=== PATIENT | female | born 1975 | race African-American/Black ===

== ENCOUNTER 2016-08-07 17:48 | Emergency (ER) | payer OTHER ==
[~2016-08-07] VITALS: Ht 162.6 cm; Wt 95.3 kg
[~2016-08-07 17:48] MED LIST: ACYC200C PO; ALBU2.5V5 NEB; ASPI325T4 PO; ATOV750O PO; AZAT50TA PO; AZIT250T PO; BUPR100T6 PO; CETI10TA22 PO; CIPR250T PO; CYAN100072 PO; CYCL5TAB PO; DEXT30SU15 PO; DILT240C4 PO; DILT30TA26 PO; DIPH25TA64 PO; ENOX30DI SQ; ENOX80DI3 SQ; FAMO-63 PO; FENT1PAT19 TD; FENT1PAT21 TP; FENT1PAT91 TD; FLUT1DIS3 IH; FLUT1DIS3 INH; FURO-69 PO; GABA-586 PO; GUAI100G2 PO; HYDR200T PO; HYDR25TA PO; HYDR30CR61 RC; HYDR4TAB13 PO; INSU100C4 SQ; LACT1CAP19 PO; LOPE1TAB4 PO; LORA0.5T96 PO; LORA1TAB PO; METO10TA81 PO; METR250T PO; MONT10TA6 PO; MORP15TA34 PO; NORT10CA3 PO; NPH,100V SQ; NYST30PO9 TP; OXCA150T3 PO; POLY119P19 PO; POSA100T PO; POTA20TA84 PO; PRED-220 PO; PRED50TA PO; PRED5TAB PO; PROM12.56 PO; PROM25TA10 PO; RIFA150C PO; RIVA10TA PO; SENN8.6T99 PO; TOPI25TA32 PO; VENTOLIN HFA18 GM IH; ZOLP10TA PO; [UNRECOGNIZED DRUG - CODE] IH; [UNRECOGNIZED DRUG - CODE] PO
[2016-08-07] MEDS ORDERED: IV NORMAL SALINE 1000ML BAG 1,000 ML IV SCH (18:38)
[2016-08-07] MEDS ORDERED: ONDANSETRON PF 4 MG/2 ML VIAL. IV ONE (18:45)
--- NOTE | 2016-08-07 18:47 | PHYS DOC ---
Past Medical History Past Medical History: Anxiety, Asthma, Depression, Diabetes-Type II, Fibromyalgia, Hypertension, MRSA, Ovarian Cyst, Seizure Additional Past Medical Histor: NEUROPATHY, VAS. 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 The patient's primary complaint currently is chest pain. Patient states that the pain goes across her entire chest. Patient had stated before that she had pain radiating to her back per the nursing note, however the patient is telling me that the pain is "all over." Patient has history of sarcoidosis, asthma, fibromyalgia and diabetes mellitus. The patient has had multiple visits to the emergency department for pain-related complaints in the past. Patient also states that she is having shortness of breath currently. Patient has history of pulmonary embolism and is currently on Xarelto therapy. Patient rates her pain currently is 10 out of 10. Patient has also had nausea and vomiting and states that she has not been able to keep any of her medications down. Patient denies fevers. Patient has had small amounts of blood in her vomit. Review of Systems Review of Systems Constitutional: Denies fever or chills [] Eyes: Denies change in visual acuity, redness, or eye pain [] HENT: Denies nasal congestion or sore throat [] Respiratory: Cough, shortness of breath [] Cardiovascular: Chest pain [] GI: Abdominal pain, nausea, vomiting, hematemesis, denies bloody stools or diarrhea [] : Denies dysuria or hematuria [] Musculoskeletal: Denies back pain or joint pain [] Integument: Denies rash or skin lesions [] Neurologic: Headache, denies focal weakness or sensory changes [] Endocrine: Denies polyuria or polydipsia [] Current Medications Current Medications Current Medications Medications (Trade) Dose Ordered Sig/Jerilyn Start Time Stop Time Status Last Admin Dose Admin Hydromorphone HCl 1 mg 1 mg PRN Q15MIN PRN 08/07/16 18:45 08/08/16 18:44 08/07/16 20:02 1 MG Ondansetron HCl (Zofran) 4 mg 1X ONCE 08/07/16 18:45 08/07/16 18:48 DC Promethazine HCl (Phenergan Im) 25 mg 1X ONCE 08/07/16 21:00 08/07/16 21:01 DC Sodium Chloride (Iv Sodium Chloride 0.9% 1000ml Bag) 1,000 ml @ 1,000 mls/hr Q1H 08/07/16 18:38 08/07/16 19:37 DC 08/07/16 20:01 1,000 MLS/HR Sodium Chloride (NORMAL SALINE FLUSH for STERILE FIELD) 10 ml STK-MED ONCE 08/07/16 19:26 08/07/16 19:27 DC Allergies Allergies Allergies Coded Allergies Type Severity Reaction Last Updated Verified Penicillins Allergy Intermediate 01/25/14 Yes bupropion Allergy Intermediate 01/25/14 Yes ketamine Allergy Intermediate "i flipped out" 07/13/16 Yes ketorolac Allergy Intermediate 01/25/14 Yes ondansetron Allergy Intermediate ITCHING ALL OVER 05/14/15 Yes prochlorperazine Allergy Intermediate 07/31/14 Yes sulfamethoxazole Allergy Intermediate 01/18/14 Yes tiotropium Allergy Intermediate DUONEB OK 06/21/14 Yes tramadol Allergy Intermediate TOLERATES HYDROMORPHONE 06/16/14 Yes trimethoprim Allergy Intermediate 01/18/14 Yes Physical Exam Physical Exam Constitutional: Alert, afebrile, no acute distress, appears in mild discomfort. [] HENT: Normocephalic, atraumatic, bilateral external ears normal, oropharynx moist, no oral exudates, nose normal. [] Eyes: PERRLA, EOMI, conjunctiva normal, no discharge. [] Neck: Normal range of motion, no tenderness, supple, no stridor. [] Cardiovascular: Tachycardia, regular rhythm, no murmur [] Lungs & Thorax: Bilateral breath sounds clear to auscultation [] Abdomen: Bowel sounds normal, soft, no tenderness, no masses, no pulsatile masses. [] Skin: Warm, dry, no erythema, no rash. [] Back: No tenderness, no CVA tenderness. [] Extremities: No tenderness, no cyanosis, no clubbing, ROM intact, no edema. [] Neurologic: Alert and oriented X 3, normal motor function, normal sensory function, no focal deficits noted. [] Current Patient Data Vital Signs Vital Signs Date Time Temp Pulse Resp B/P Pulse Ox O2 Delivery O2 Flow Rate FiO2 08/07/16 20:02 23 100 08/07/16 17:51 98.9 115 127/75 Room Air 98.9 Lab Values Laboratory Tests Test 08/07/16 19:50 White Blood Count 7.8x10^3/uL (4.0-11.0) Red Blood Count 4.75x10^6/uL (3.50-5.40) Hemoglobin 12.1g/dL (12.0-15.5) Hematocrit 39.2% (36.0-47.0) Mean Corpuscular Volume 82fL (79-100) Mean Corpuscular Hemoglobin 25pg (25-35) Mean Corpuscular Hemoglobin Concent 31g/dL (31-37) Red Cell Distribution Width 21.5% (11.5-14.5) H Platelet Count 190x10^3/uL (140-400) Neutrophils (%) (Auto) 76% (31-73) H Lymphocytes (%) (Auto) 11% (24-48) L Monocytes (%) (Auto) 12% (0-9) H Eosinophils (%) (Auto) 0% (0-3) Basophils (%) (Auto) 1% (0-3) Neutrophils # (Auto) 5.9x10^3uL (1.8-7.7) Lymphocytes # (Auto) 0.8x10^3/uL (1.0-4.8) L Monocytes # (Auto) 0.9x10^3/uL (0.0-1.1) Eosinophils # (Auto) 0.0x10^3/uL (0.0-0.7) Basophils # (Auto) 0.1x10^3/uL (0.0-0.2) Platelet Estimate Adequate (ADEQUATE) Polychromasia Slight Anisocytosis Mod D-Dimer (Khadijah) < 0.27ug/mlFEU (0.00-0.50) Sodium Level 139mmol/L (136-145) Potassium Level 3.6mmol/L (3.5-5.1) Chloride Level 104mmol/L (98-107) Carbon Dioxide Level 24mmol/L (21-32) Anion Gap 11 (6-14) Blood Urea Nitrogen 7mg/dL (7-20) Creatinine 1.0mg/dL (0.6-1.0) Estimated GFR (Cockcroft-Gault) 73.9 Glucose Level 257mg/dL (70-99) H Calcium Level 9.1mg/dL (8.5-10.1) Magnesium Level 2.1mg/dL (1.8-2.4) Total Bilirubin 0.2mg/dL (0.2-1.0) Direct Bilirubin 0.1mg/dL (0.0-0.2) Aspartate Amino Transferase (AST) 12U/L (15-37) L Alanine Aminotransferase (ALT) 14U/L (14-59) Alkaline Phosphatase 118U/L (46-116) H Creatine Kinase 51U/L (26-192) Creatine Kinase MB (Mass) < 0.5ng/mL (0.0-3.6) Creatine Kinase MB Relative Index 1.0% (0-4) Troponin I Quantitative < 0.017ng/mL (0.000-0.055) EC-Tzl-D-Type Natriuretic Peptide 27pg/mL (0-124) Total Protein 7.2g/dL (6.4-8.2) Albumin 3.4g/dL (3.4-5.0) Laboratory Tests 08/07/16 19:50 Laboratory Tests 08/07/16 19:50 EKG EKG Interpreted by me: Heart rate 114, sinus tachycardia, normal intervals, normal axis, no acute ST/T-wave abnormalities present [] Radiology/Procedures Radiology/Procedures One view AP chest x-ray interpreted by me: No new infiltrates or effusions, normal cardiac silhouette, chronic fibrotic changes present [] Course & Med Decision Making Course & Med Decision Making Pertinent Labs and Imaging studies reviewed. (See chart for details) Patient was given IM Phenergan, IV fluids, and IV Dilaudid. Patient's blood work does not show any evidence of cardiac ischemia or pulmonary embolism. The patient's pain and nausea were controlled in the emergency department. The patient will be discharged with a prescription for Phenergan for continued control nausea and patient was advised to continue her home medications for pain. Advised follow-up in one to 2 days a primary doctor and return to emergency department for any worsening symptoms. Patient voiced understanding and in agreement with treatment plan. Dragon Disclaimer Dragon Disclaimer This electronic medical record was generated, in whole or in part, using a voice recognition dictation system. Departure Departure Impression: Primary Impression: Chest pain Additional Impressions: Uncontrolled diabetes mellitus Nausea & vomiting Disposition: 01 HOME, SELF-CARE Condition: IMPROVED Referrals: ENDY ARGUETA (PCP) Patient Instructions: Chest Pain (Nonspecific) Additional Instructions: Follow-up with your primary doctor in 1-2 days. Continue with a clear liquid diet until your nausea and vomiting have improved. Return to the emergency department for any worsening symptoms. Scripts Promethazine Hcl 25 Mg Supp.rect25 Mg RC Q6H PRN NAUSEA/VOMITING #10 SUPP.RECT Prov:TRUDY ALLRED MD 08/07/16 Problem Qualifiers Primary Impression: Chest pain Chest pain type: other chest pain Qualified Code: R07.89 - Other chest pain Additional Impressions: Uncontrolled diabetes mellitus Diabetes mellitus type: type 2 Diabetes mellitus complication status: with hyperglycemia Diabetes mellitus terminal gauger insulin use: unspecified penitentiary insulin use status Qualified Code: E11.65 - Type 2 diabetes mellitus with hyperglycemia Nausea & vomiting Vomiting type: unspecified Vomiting Intractability: unspecified Qualified Code: R11.2 - Nausea with vomiting, unspecified TRUDY ALLRED MD Aug 07, 2016 18:47
[2016-08-07] MEDS ORDERED: 0.9 % SOD CHL for STERILE FIELD 10 ML DISP.SYRIN. ONE (19:26)
[2016-08-07] MEDS: HYDROMORPHONE 2 MG/ML VIAL. IV/SQ PRN ×2 (20:02→21:25)
[2016-08-07 20:22] LABS: BASO # 0.1 x10^3/uL (0.0-0.2); BASO % 1 % (0-3); EOS % 0 % (0-3); HEMATOCRIT 39.2 % (36.0-47.0); HEMOGLOBIN 12.1 g/dL (12.0-15.5); LYMPH # 0.8 x10^3/uL (1.0-4.8); LYMPH % 11 % (24-48); MEAN CORPUSCULAR HEMOGLOBIN 25 pg (25-35); MEAN CORPUSCULAR HGB CONC 31 g/dL (31-37); MEAN CORPUSCULAR VOLUME 82 fL (79-100); MONO % 12 % (0-9); NEUT % 76 % (31-73); PLATELET COUNT 190 x10^3/uL (140-400); RED BLOOD COUNT 4.75 x10^6/uL (3.50-5.40); RED CELL DISTRIBUTION WIDTH 21.5 % (11.5-14.5); WHITE BLOOD COUNT 7.8 x10^3/uL (4.0-11.0)
[2016-08-07 20:39] LABS: ANISOCYTOSIS MOD; PLT ESTIMATE ADEQUATE (ADEQUATE)
[2016-08-07 20:40] LABS: CALCIUM 9.1 mg/dL (8.5-10.1); GFR 73.9; POLYCHROMASIA SLIGHT; POTASSIUM 3.6 mmol/L (3.5-5.1)
[2016-08-07] MEDS ORDERED: PROMETHAZINE IM 25 MG/ML VIAL IM ONE (21:00)
[2016-08-07 21:03] LABS: ALBUMIN 3.4 g/dL (3.4-5.0); DIRECT BILIRUBIN 0.1 mg/dL (0.0-0.2); MAGNESIUM 2.1 mg/dL (1.8-2.4); TOTAL BILIRUBIN 0.2 mg/dL (0.2-1.0); TOTAL PROTEIN 7.2 g/dL (6.4-8.2)
[2016-08-07 21:04] LABS: CREATINE KINASE 51 U/L (26-192)
[2016-08-07 21:05] LABS: CKMB MASS < 0.5 ng/mL (0.0-3.6)
[2016-08-07] MEDS ORDERED: PROM25SU33 RC (21:35)
[2016-08-07 22:07] VITALS: BP 129/78
[2016-08-07] MEDS ORDERED: HEPARIN PF 500 UNIT/5 ML DISP.SYRIN. IV ONE ×2 (22:11→22:30)
--- NOTE | 2016-08-08 06:42 | EKG ---
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
--- NOTE | 2016-08-08 08:56 | RAD ---
Portable chest, 08/07/2016: History: Chest pain, diabetes, sarcoidosis Comparison is made to a study from 07/30/2016. A left Port-A-Cath extends into the superior aspect of the right atrium. The heart size and pulmonary vascularity are normal. There are small scattered parenchymal opacities which are unchanged. These probably represent scars related to the given history of sarcoidosis. There are surgical sutures in the right lung. No new parenchymal abnormality is seen. There is no evidence of pleural fluid. IMPRESSION: No acute abnormality is detected with no significant change since 07/30/2016.
== END 2016-08-07 22:20 | disposition home or self-care (01) ==
LOC: ER 17:48
DX: R07.89 Other chest pain (principal); E11.65 Type 2 diabetes mellitus with hyperglycemia; K92.0 Hematemesis; R00.0 Tachycardia, unspecified; J45.909 Unspecified asthma, uncomplicated; M79.7 Fibromyalgia; D86.9 Sarcoidosis, unspecified; F41.9 Anxiety disorder, unspecified; F32.9 Major depressive disorder, single episode, unspecified; I10 Essential (primary) hypertension; E11.40 Type 2 diabetes mellitus with diabetic neuropathy, unspecified; Z86.14 Personal history of Methicillin resistant Staphylococcus aureus infection; Z88.5 Allergy status to narcotic agent; Z88.8 Allergy status to other drugs, medicaments and biological substances; Z88.1 Allergy status to other antibiotic agents; Z88.2 Allergy status to sulfonamides; Z88.0 Allergy status to penicillin; Z86.711 Personal history of pulmonary embolism; Z86.718 Personal history of other venous thrombosis and embolism
CPT/HCPCS: 36415; 71010; 80048; 80076; 82553; 83735; 83880; 84484; 85007; 85027; 85379; 93005; 96361; 96372; 96374; 96376; 99285; J1170; J2550; J7030

== ENCOUNTER 2016-08-09 21:07 | Emergency (ER) | payer OTHER ==
[~2016-08-09] VITALS: Ht 162.6 cm; Wt 95.3 kg
[~2016-08-09 21:07] MED LIST changes: +PROM25SU33 RC
[2016-08-09] MEDS ORDERED: IPRATRPIUM/ALBUTEROL 0.5/2.5MG 3 ML NEBU. NEB ONE (21:30)
[2016-08-09] MEDS ORDERED: 0.9 % SOD CHL for STERILE FIELD 10 ML DISP.SYRIN. ONE (21:40)
[2016-08-09] MEDS ORDERED: METOCLOPRAMIDE HCL 10 MG/2 ML VIAL. IV ONE (22:00)
[2016-08-09] MEDS ORDERED: IV NORMAL SALINE 1000ML BAG 1,000 ML IV SCH (22:00)
[2016-08-09] MEDS ORDERED: FENTANYL PF 100 MCG/2 ML VIAL. IV ONE (22:00)
[2016-08-09 22:07] LABS: BASO % 1 % (0-3); EOS % 1 % (0-3); HEMATOCRIT 40.7 % (36.0-47.0); HEMOGLOBIN 12.5 g/dL (12.0-15.5); LYMPH # 1.9 x10^3/uL (1.0-4.8); LYMPH % 22 % (24-48); MEAN CORPUSCULAR HEMOGLOBIN 25 pg (25-35); MEAN CORPUSCULAR HGB CONC 31 g/dL (31-37); MEAN CORPUSCULAR VOLUME 82 fL (79-100); MONO % 11 % (0-9); NEUT % 66 % (31-73); PLATELET COUNT 210 x10^3/uL (140-400); RED BLOOD COUNT 4.94 x10^6/uL (3.50-5.40); RED CELL DISTRIBUTION WIDTH 21.1 % (11.5-14.5); WHITE BLOOD COUNT 8.7 x10^3/uL (4.0-11.0)
[2016-08-09 22:17] LABS: CALCIUM 9.4 mg/dL (8.5-10.1); CREATININE 1.1 mg/dL (0.6-1.0); GFR 66.2; POTASSIUM 3.5 mmol/L (3.5-5.1)
[2016-08-09 22:23] LABS: ALBUMIN 3.7 g/dL (3.4-5.0); DIRECT BILIRUBIN 0.1 mg/dL (0.0-0.2); TOTAL BILIRUBIN 0.2 mg/dL (0.2-1.0); TOTAL PROTEIN 7.6 g/dL (6.4-8.2)
[2016-08-09] MEDS ORDERED: PROM12.553 RC (22:57)
[2016-08-09 22:59] LABS: ANISOCYTOSIS MOD; PLT ESTIMATE ADEQUATE (ADEQUATE); POLYCHROMASIA SLIGHT; TEAR DROP CELLS OCC
[2016-08-09] MEDS ORDERED: PROMETHAZINE 12.5 MG in IV NORMAL SALINE 50ML 50 ML IV ONE (23:00)
--- NOTE | 2016-08-09 23:00 | PHYS DOC ---
Past Medical History Past Medical History: Anxiety, Asthma, Depression, Diabetes-Type II, Fibromyalgia, Hypertension, MRSA, Ovarian Cyst, Seizure Additional Past Medical Histor: NEUROPATHY, VAS. 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 Symptoms initially started with nausea and vomiting and she was seen here on 08/07. She notes she has chronic dyspnea as well that has continued since that time. She has since developed bilateral nose bleed that is mild, and sometimes runs down the back of her throat in which she has swallowed blood. This worsens her nausea and she has vomited some blood since that time. On clarification, she mostly states she has bloody sputum with clearing of her throat. She denies dark stools, abdominal pain, chest pain. She states she has full body discomfort and is not able to take her home pain medicines. She denies cough, chest pain, hemoptysis, injury, rash, fever or chills, diarrhea, dysuria, numbness, tingling, weakness, headache, vision changes. Review of Systems Review of Systems Constitutional: Denies fever or chills [] Eyes: Denies change in visual acuity, redness, or eye pain [] HENT: Denies nasal congestion or sore throat [] Respiratory: Denies cough [] Cardiovascular: No additional information not addressed in HPI [] GI: Denies abdominal pain, bloody stools or diarrhea [] : Denies dysuria or hematuria [] Musculoskeletal: Denies back pain or joint pain [] Integument: Denies rash or skin lesions [] Neurologic: Denies headache, focal weakness or sensory changes [] Endocrine: Denies polyuria or polydipsia [] Current Medications Current Medications Current Medications Medications (Trade) Dose Ordered Sig/Jerilyn Start Time Stop Time Status Last Admin Dose Admin Albuterol/ Ipratropium (Duoneb) 3 ml 1X ONCE 08/09/16 21:30 08/09/16 21:32 DC 08/09/16 21:35 3 ML Fentanyl Citrate (Fentanyl 2ml Vial) 75 mcg 1X ONCE 08/09/16 22:00 08/09/16 22:01 DC 08/09/16 22:13 75 MCG Metoclopramide HCl 10 mg 10 mg 1X ONCE 08/09/16 22:00 08/09/16 22:17 DC Promethazine HCl/ Sodium Chloride (Phenergan/Iv Sodium Chloride 0.9% 50ml) 50.5 ml @ 101 mls/hr 1X ONCE 08/09/16 23:00 08/09/16 23:29 DC 08/09/16 22:26 101 MLS/HR Sodium Chloride (Iv Sodium Chloride 0.9% 1000ml Bag) 1,000 ml @ 1,000 mls/hr Q1H 08/09/16 22:00 08/09/16 22:59 DC 08/09/16 22:13 1,000 MLS/HR Sodium Chloride 10 ml 10 ml STK-MED ONCE 08/09/16 21:40 08/09/16 21:41 DC Allergies Allergies Allergies Coded Allergies Type Severity Reaction Last Updated Verified Penicillins Allergy Intermediate 01/25/14 Yes bupropion Allergy Intermediate 01/25/14 Yes ketamine Allergy Intermediate "i flipped out" 07/13/16 Yes ketorolac Allergy Intermediate 01/25/14 Yes ondansetron Allergy Intermediate ITCHING ALL OVER 05/14/15 Yes prochlorperazine Allergy Intermediate 07/31/14 Yes sulfamethoxazole Allergy Intermediate 01/18/14 Yes tiotropium Allergy Intermediate DUONEB OK 06/21/14 Yes tramadol Allergy Intermediate TOLERATES HYDROMORPHONE 06/16/14 Yes trimethoprim Allergy Intermediate 01/18/14 Yes Physical Exam Physical Exam Constitutional: Well developed, well nourished, no acute distress, non-toxic appearance. [] HENT: Normocephalic, atraumatic, bilateral external ears normal, oropharynx moist, no oral exudates. Bilateral anterior epistaxis with minimal oozing. [] Eyes: PERRLA, EOMI. [] Neck: Normal range of motion, supple, no stridor. [] Cardiovascular: Regular tachycardia [] Lungs & Thorax: Mild bilateral wheezing, normal respiratory effort, no crackles [] Abdomen: Bowel sounds normal, soft, no tenderness. [] Skin: Warm, dry, no erythema, no rash. [] Back: No tenderness, no CVA tenderness. [] Extremities: ROM intact, no edema, no palpable cord. [] Neurologic: Alert and oriented X 3, normal motor function, normal sensory function, no focal deficits noted. [] Psychologic: Affect normal, judgement normal, mood normal. [] Current Patient Data Vital Signs Vital Signs Date Time Temp Pulse Resp B/P Pulse Ox O2 Delivery O2 Flow Rate FiO2 08/09/16 23:11 101 150/81 97 Room Air 08/09/16 22:13 18 08/09/16 21:14 98.4 98.4 Lab Values Laboratory Tests Test 08/09/16 21:58 White Blood Count 8.7x10^3/uL (4.0-11.0) Red Blood Count 4.94x10^6/uL (3.50-5.40) Hemoglobin 12.5g/dL (12.0-15.5) Hematocrit 40.7% (36.0-47.0) Mean Corpuscular Volume 82fL (79-100) Mean Corpuscular Hemoglobin 25pg (25-35) Mean Corpuscular Hemoglobin Concent 31g/dL (31-37) Red Cell Distribution Width 21.1% (11.5-14.5) H Platelet Count 210x10^3/uL (140-400) Neutrophils (%) (Auto) 66% (31-73) Lymphocytes (%) (Auto) 22% (24-48) L Monocytes (%) (Auto) 11% (0-9) H Eosinophils (%) (Auto) 1% (0-3) Basophils (%) (Auto) 1% (0-3) Neutrophils # (Auto) 5.7x10^3uL (1.8-7.7) Lymphocytes # (Auto) 1.9x10^3/uL (1.0-4.8) Monocytes # (Auto) 1.0x10^3/uL (0.0-1.1) Eosinophils # (Auto) 0.0x10^3/uL (0.0-0.7) Basophils # (Auto) 0.0x10^3/uL (0.0-0.2) Platelet Estimate Adequate (ADEQUATE) Polychromasia Slight Anisocytosis Mod Tear Drop Cells Occ Sodium Level 139mmol/L (136-145) Potassium Level 3.5mmol/L (3.5-5.1) Chloride Level 105mmol/L (98-107) Carbon Dioxide Level 26mmol/L (21-32) Anion Gap 8 (6-14) Blood Urea Nitrogen 8mg/dL (7-20) Creatinine 1.1mg/dL (0.6-1.0) H Estimated GFR (Cockcroft-Gault) 66.2 Glucose Level 205mg/dL (70-99) H Calcium Level 9.4mg/dL (8.5-10.1) Total Bilirubin 0.2mg/dL (0.2-1.0) Direct Bilirubin 0.1mg/dL (0.0-0.2) Aspartate Amino Transferase (AST) 15U/L (15-37) Alanine Aminotransferase (ALT) 21U/L (14-59) Alkaline Phosphatase 125U/L (46-116) H Total Protein 7.6g/dL (6.4-8.2) Albumin 3.7g/dL (3.4-5.0) Lipase 311U/L (73-393) Laboratory Tests 08/09/16 21:58 Laboratory Tests 08/09/16 21:58 EKG EKG EKG as interpreted by me as sinus tachycardia, rate 121, no ST-T changes, normal intervals, no ectopy Course & Med Decision Making Course & Med Decision Making Pertinent Labs and Imaging studies reviewed. (See chart for details) Lungs are clear to auscultation after neb. She has no emesis while here and is tolerating po. Epistaxis is controlled after direct pressure. Lab evaluation is unremarkable. Will provide Phenergan suppository as she states she vomiting the Phenergan pills. Return precautions given. She understands and agrees. Dragon Disclaimer Sol Disclaimer This electronic medical record was generated, in whole or in part, using a voice recognition dictation system. Departure Departure Impression: Primary Impression: Nausea & vomiting Additional Impression: Anterior epistaxis Disposition: 01 HOME, SELF-CARE Condition: STABLE Patient Instructions: Nosebleed, [id number] Additional Instructions: Take promethazine as needed for nausea. Drink liquids to stay hydrated. Follow- up with your primary care doctor. Return for any concerns. Scripts Promethazine HCl (Phenergan)12.5 Mg Supp.rect12.5 Mg RC PRN Q6-8HRS PRN NAUSEA # 10 SUPP.RECT Prov:Maren WOLFE MD 08/09/16 Problem Qualifiers Primary Impression: Nausea & vomiting Vomiting type: unspecified Vomiting Intractability: non-intractable Qualified Code: R11.2 - Nausea with vomiting, unspecified Maren WOLFE MD Aug 09, 2016 23:00
[2016-08-09 23:11] VITALS: BP 150/81
--- NOTE | 2016-08-10 06:29 | EKG ---
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
== END 2016-08-09 23:18 | disposition home or self-care (01) ==
LOC: ER 21:07
DX: R04.0 Epistaxis (principal); R11.2 Nausea with vomiting, unspecified; J45.909 Unspecified asthma, uncomplicated; E11.40 Type 2 diabetes mellitus with diabetic neuropathy, unspecified; I10 Essential (primary) hypertension; Z86.718 Personal history of other venous thrombosis and embolism; Z86.711 Personal history of pulmonary embolism; M79.7 Fibromyalgia; Z86.14 Personal history of Methicillin resistant Staphylococcus aureus infection; Z90.49 Acquired absence of other specified parts of digestive tract; Z88.0 Allergy status to penicillin; Z88.8 Allergy status to other drugs, medicaments and biological substances; Z88.2 Allergy status to sulfonamides; Z88.6 Allergy status to analgesic agent
CPT/HCPCS: 36415; 80048; 80076; 83690; 85007; 85027; 93005; 94640; 96361; 96365; 96375; 99285; J2550; J3010; J7030; J7620

== ENCOUNTER 2016-08-16 13:20 | Inpatient (IN) | payer OTHER ==
[~2016-08-16] VITALS: Ht 162.6 cm; Wt 106.3 kg
[~2016-08-16 13:20] MED LIST changes: +PROM12.553 RC
[2016-08-16] MEDS ORDERED: MORPHINE SULFATE 2 MG/ML DISP.SYRIN. IV/SQ PRN (13:45)
--- NOTE | 2016-08-16 13:49 | EKG ---
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
--- NOTE | 2016-08-16 14:14 | PHYS DOC ---
Past Medical History Past Medical History: Anxiety, Asthma, Depression, Diabetes-Type II, Fibromyalgia, Hypertension, MRSA, Ovarian Cyst, Seizure, Other Additional Past Medical Histor: NEUROPATHY VAS. NECROSIS,TACHY,DVT, PE,SLIPPED DISC IN BACK,sarcodosis Past Surgical History: Cholecystectomy, Other Additional Past Surgical Histo: OVARIN CYSTS RUPTURE W/ D&C, PINCHED NERVE IN BACK,PILONIDAL CYST Alcohol Use: None Drug Use: None Adult General Chief Complaint Chief Complaint: MULTIPLE COMPLAINTS HPI HPI Patient is a 41 year old -[place] Citizen female who presents with chest pain and vaginal bleeding. States last night she developed nausea vomiting and chest discomfort. She states it feels like someone abdomen her in the chest. She also complains of wheezing in addition to vaginal bleeding that started today. She states she has a history of sarcoidosis, fibromyalgia, rheumatoid arthritis, adrenal insufficiency. She states she's not been no acute down any of her pain meds or any antianxiety meds since last night. She denies any fevers chills, diarrhea or abdominal pain. Review of Systems Review of Systems Constitutional: Denies fever or chills [] Eyes: Denies change in visual acuity, redness, or eye pain [] HENT: Denies nasal congestion or sore throat [] Respiratory: Denies cough or shortness of breath [] Cardiovascular: No additional information not addressed in HPI [] GI: Denies abdominal pain, nausea, vomiting, bloody stools or diarrhea [] : Denies dysuria or hematuria [] Musculoskeletal: Denies back pain or joint pain [] Integument: Denies rash or skin lesions [] Neurologic: Denies headache, focal weakness or sensory changes [] Endocrine: Denies polyuria or polydipsia [] Current Medications Current Medications Current Medications Medications (Trade) Dose Ordered Sig/Jerilyn Start Time Stop Time Status Last Admin Dose Admin Albuterol Sulfate (Ventolin Neb Soln) 2.5 mg 1X ONCE 08/16/16 14:15 08/16/16 14:16 DC 08/16/16 14:23 2.5 MG Hydromorphone HCl (Dilaudid) 1 mg PRN Q15MIN PRN 08/16/16 14:15 08/17/16 14:14 08/16/16 15:01 1 MG Lidocaine/Sodium Bicarbonate (Buffered Lidocaine 1%) 20 ml 1X ONCE 08/16/16 15:15 08/16/16 15:16 DC 08/16/16 15:15 20 ML Lorazepam (Ativan) 1 mg PRN Q4HRS PRN 08/16/16 14:15 08/16/16 15:07 1 MG Morphine Sulfate 2 mg PRN Q15MIN PRN 08/16/16 13:45 08/16/16 15:09 DC Allergies Allergies Allergies Coded Allergies Type Severity Reaction Last Updated Verified Penicillins Allergy Intermediate 01/25/14 Yes bupropion Allergy Intermediate 01/25/14 Yes ketamine Allergy Intermediate "i flipped out" 07/13/16 Yes ketorolac Allergy Intermediate 01/25/14 Yes ondansetron Allergy Intermediate ITCHING ALL OVER 05/14/15 Yes prochlorperazine Allergy Intermediate 07/31/14 Yes sulfamethoxazole Allergy Intermediate 01/18/14 Yes tiotropium Allergy Intermediate DUONEB OK 06/21/14 Yes tramadol Allergy Intermediate TOLERATES HYDROMORPHONE 06/16/14 Yes trimethoprim Allergy Intermediate 01/18/14 Yes Physical Exam Physical Exam Constitutional: Well developed, well nourished, no acute distress, non-toxic appearance. [] HENT: Normocephalic, atraumatic, bilateral external ears normal, oropharynx moist, no oral exudates, nose normal. [] Eyes: PERRLA, EOMI, conjunctiva normal, no discharge. [] Neck: Normal range of motion, no tenderness, supple, no stridor. [] Cardiovascular:Heart rate regular rhythm, no murmur [] Lungs & Thorax: Bilateral breath sounds clear to auscultation [] Abdomen: Bowel sounds normal, soft, no tenderness, no masses, no pulsatile masses. [] Pelvic Exam: No vaginal bleeding noted in her vagina, she does have a fluctuant mass approximately 3 x 3 cm in the left lower buttocks Skin: Warm, dry, no erythema, no rash. [] Back: No tenderness, no CVA tenderness. [] Extremities: No tenderness, no cyanosis, no clubbing, ROM intact, no edema. [] Neurologic: Alert and oriented X 3, normal motor function, normal sensory function, no focal deficits noted. [] Psychologic: Affect normal, judgement normal, mood normal. [] Current Patient Data Vital Signs Vital Signs Date Time Temp Pulse Resp B/P Pulse Ox O2 Delivery O2 Flow Rate FiO2 08/16/16 15:01 27 95 Room Air 08/16/16 13:20 99.7 134 139/75 99.7 Lab Values Laboratory Tests Test 08/16/16 14:38 08/16/16 15:18 08/16/16 15:45 White Blood Count 12.9x10^3/uL (4.0-11.0) H Red Blood Count 4.44x10^6/uL (3.50-5.40) Hemoglobin 11.2g/dL (12.0-15.5) L Hematocrit 36.1% (36.0-47.0) Mean Corpuscular Volume 81fL (79-100) Mean Corpuscular Hemoglobin 25pg (25-35) Mean Corpuscular Hemoglobin Concent 31g/dL (31-37) Red Cell Distribution Width 20.8% (11.5-14.5) H Platelet Count 178x10^3/uL (140-400) Neutrophils (%) (Auto) 86% (31-73) H Lymphocytes (%) (Auto) 7% (24-48) L Monocytes (%) (Auto) 6% (0-9) Eosinophils (%) (Auto) 0% (0-3) Basophils (%) (Auto) 0% (0-3) Neutrophils # (Auto) 11.1x10^3uL (1.8-7.7) H Lymphocytes # (Auto) 0.9x10^3/uL (1.0-4.8) L Monocytes # (Auto) 0.8x10^3/uL (0.0-1.1) Eosinophils # (Auto) 0.0x10^3/uL (0.0-0.7) Basophils # (Auto) 0.0x10^3/uL (0.0-0.2) Segmented Neutrophils % 84% (35-66) H Band Neutrophils % 2% (0-9) Lymphocytes % 10% (24-48) L Monocytes % 4% (0-10) Platelet Estimate Adequate (ADEQUATE) Anisocytosis Mod Prothrombin Time 21.9SEC (11.7-14.0) H Prothrombin Time INR 2.0 (0.8-1.1) H Sodium Level 139mmol/L (136-145) Potassium Level 4.0mmol/L (3.5-5.1) Chloride Level 102mmol/L (98-107) Carbon Dioxide Level 26mmol/L (21-32) Anion Gap 11 (6-14) Blood Urea Nitrogen 15mg/dL (7-20) Creatinine 1.0mg/dL (0.6-1.0) Estimated GFR (Cockcroft-Gault) 73.9 Glucose Level 422mg/dL (70-99) H Calcium Level 9.3mg/dL (8.5-10.1) Magnesium Level 2.2mg/dL (1.8-2.4) Total Bilirubin 0.2mg/dL (0.2-1.0) Direct Bilirubin < 0.1mg/dL (0.0-0.2) Aspartate Amino Transferase (AST) 7U/L (15-37) L Alanine Aminotransferase (ALT) 15U/L (14-59) Alkaline Phosphatase 135U/L (46-116) H Creatine Kinase 96U/L (26-192) Creatine Kinase MB (Mass) 0.9ng/mL (0.0-3.6) Creatine Kinase MB Relative Index 0.9% (0-4) Troponin I Quantitative < 0.017ng/mL (0.000-0.055) YY-Axc-W-Type Natriuretic Peptide 63pg/mL (0-124) Total Protein 7.1g/dL (6.4-8.2) Albumin 3.6g/dL (3.4-5.0) Lipase 227U/L (73-393) Thyroid Stimulating Hormone (TSH) 0.147uIU/mL (0.358-3.74) L Serum Test, Qualitative Negative (NEG) Urine Collection Type Unknown Urine Color Yellow Urine Clarity Clear Urine pH 6.0 Urine Specific [place] 1.015 Urine Protein Negativemg/dL (NEG-TRACE) Urine Glucose (UA) >=1000mg/dL (NEG) Urine Ketones (Stick) Negativemg/dL (NEG) Urine Blood Small (NEG) Urine Nitrite Negative (NEG) Urine Bilirubin Negative (NEG) Urine Urobilinogen Dipstick 0.2mg/dL (0.2 mg/dL) Urine Leukocyte Esterase Negative (NEG) Urine RBC 3-5/HPF (0-2) Urine WBC 0/HPF (0-4) Urine Squamous Epithelial Cells Few/LPF Urine Bacteria Few/HPF (0-FEW) Urine Mucus Mod/LPF Urine Opiates Screen Pos (NEG) Urine Methadone Screen Neg (NEG) Urine Barbiturates Neg (NEG) Urine Phencyclidine Screen Neg (NEG) Urine Amphetamine/Methamphetamine Neg (NEG) Urine Benzodiazepines Screen Neg (NEG) Urine Cocaine Screen Neg (NEG) Urine Cannabinoids Screen Neg (NEG) Urine Ethyl Alcohol Neg (NEG) O2 Saturation 88% (92-99) L Arterial Blood pH 7.33 (7.35-7.45) L Arterial Blood pCO2 at Patient Temp 44mmHg (35-46) Arterial Blood pO2 at Patient Temp 55mmHg (75-108) L Arterial Blood HCO3 23mmol/L (21-28) Arterial Blood Base Excess -3mmol/L (-3-3) FiO2 21 Laboratory Tests 08/16/16 14:38 Laboratory Tests 08/16/16 14:38 EKG EKG KG shows sinus tachycardia with rate of [address] elevations or T-wave inversions noted in aVL, normal axis, as interpreted by me. Radiology/Procedures Radiology/Procedures [] Impressions: Gluteal abscess Tachycardia Soreness of breath Nausea and vomiting Course & Med Decision Making Course & Med Decision Making Pertinent Labs and Imaging studies reviewed. (See chart for details) Care transferred to Dr. Rivera. Patient's gluteal abscess was incised and drained and packed with iodoform gauze. Patient will likely be admitted to the hospital secondary to her nausea vomiting and tachycardia. Dragon Disclaimer Dragon Disclaimer This electronic medical record was generated, in whole or in part, using a voice recognition dictation system. Departure Departure Referrals: ENDY ARGUETA (PCP) Incision and Drainage Indication: abscess Procedure: The patient was positioned appropriately. Local anesthesia with lidocaine. An incision was then made over the apex of the lesion and medium amount of purulent material was expressed. The drainage cavity was irrigated and packed with sterile gauze. The patients tetanus status updated as needed. The patient tolerated the procedure well. Complications: none. PASCUAL JC MD Aug 16, 2016 14:14
[2016-08-16] MEDS ORDERED: ALBUTEROL SULFATE 2.5 MG/3 ML NEBU. NEB ONE (14:15)
[2016-08-16] MEDS: HYDROMORPHONE 2 MG/ML VIAL. IV/SQ PRN ×2 (15:01→16:17)
[2016-08-16 15:06] LABS: BASO % 0 % (0-3); EOS % 0 % (0-3); HEMATOCRIT 36.1 % (36.0-47.0); HEMOGLOBIN 11.2 g/dL (12.0-15.5); LYMPH # 0.9 x10^3/uL (1.0-4.8); LYMPH % 7 % (24-48); MEAN CORPUSCULAR HEMOGLOBIN 25 pg (25-35); MEAN CORPUSCULAR HGB CONC 31 g/dL (31-37); MEAN CORPUSCULAR VOLUME 81 fL (79-100); MONO % 6 % (0-9); NEUT % 86 % (31-73); PLATELET COUNT 178 x10^3/uL (140-400); RED BLOOD COUNT 4.44 x10^6/uL (3.50-5.40); RED CELL DISTRIBUTION WIDTH 20.8 % (11.5-14.5); WHITE BLOOD COUNT 12.9 x10^3/uL (4.0-11.0)
[2016-08-16] MEDS: LORAZEPAM 2 MG/ML VIAL IV PRN ×2 (15:07→20:36)
[2016-08-16 15:09] LABS: PROTHROMBIN TIME PATIENT 21.9 SEC (11.7-14.0)
[2016-08-16 15:15] LABS: ANION GAP 11 (6-14); BLOOD UREA NITROGEN 15 mg/dL (7-20); CALCIUM 9.3 mg/dL (8.5-10.1); CARBON DIOXIDE 26 mmol/L (21-32); CHLORIDE 102 mmol/L (98-107); GFR 73.9; GLUCOSE 422 mg/dL (70-99); SODIUM 139 mmol/L (136-145)
[2016-08-16] MEDS ORDERED: LIDOCAINE 1% / SOD BICARB 8.4% 20 ML VIAL. IJ ONE (15:15)
[2016-08-16 15:17] LABS: NEG OBC SER NEG; POS OBC SER POS
[2016-08-16 15:20] LABS: ALBUMIN 3.6 g/dL (3.4-5.0); ALK PHOS 135 U/L (46-116); ALT (SGPT) 15 U/L (14-59); AST (SGOT) 7 U/L (15-37); CREATINE KINASE 95 U/L (26-192); DIRECT BILIRUBIN < 0.1 mg/dL (0.0-0.2); TOTAL BILIRUBIN 0.2 mg/dL (0.2-1.0); TOTAL PROTEIN 7.1 g/dL (6.4-8.2)
[2016-08-16 15:27] LABS: CKMB INDEX 0.9 % (0-4); CKMB MASS 0.9 ng/mL (0.0-3.6)
--- NOTE | 2016-08-16 15:29 | ACF ---
Admission Forms Criteria OBSTETRIC AND GYNECOLOGIC DISEASE [facility] Clinical Indications for Admission to Inpatient Care (Place 'X' for any and all applicable criteria): Hospital admission is needed for appropriate care of the patient because of ANY ONE of the following (1)(2)(3): [X]I. Hemodynamic instability, as indicated by ALL of the following (1)(2)(3)( 4)(5): [X]a) Vital signs or other findings not as expected for chronic patient condition or baseline [X]b) Instability indicated by ANY ONE of the following: [ ]i) Hypotension [X]ii) Symptomatic tachycardia unresponsive to treatment (eg, analgesia, fluids, sedation as indicated) [ ]iii) Inadequate perfusion indicated by ANY ONE of the following: [ ]A. Lactic acidosis (greater than 2 mmol/ L) [ ]B. New abnormal capillary refill ( greater than 3 seconds) [ ]C. Reduced urine output [ ]D. New altered mental status [ ]iv) Orthostatic vital sign changes unresponsive to treatment (eg, fluids) [ ]v) Multiple IV fluid boluses required to maintain adequate blood pressure or perfusion [ ]vi) IV inotropic or vasopressor medication required to maintain adequate blood pressure or perfusion [ ]II. Obstetric infection requiring hospitalization indicated by ANY ONE of the following(13)(14): [ ]a) Chorioamnionitis [ ]b) Endometritis (except mild endometritis) [ ]c) Pelvic abscess [ ]d) Peritonitis [ ]e) Septic pelvic thrombophlebitis [ ]III. Amniotic fluid or pulmonary embolism(4)(5)(6) [ ]IV. Suspected peritonitis or ectopic requiring monitoring beyond scope of 24 hours or observation care(7)(8) [ ]V. compromise requiring hospitalization indicated by ALL of the following(9)(10): [ ]a) compromise indicated by ANY ONE of the following(11): [ ]i) Abnormal heart rate monitoring [ ]ii) Abnormal contraction stress test [ ]iii) Abnormal biophysical profile [ ]iv) Abnormal Doppler flow in vessels (ie, Doppler velocimetry) (12) [ ]b) Persistence of compromise indicators during evaluation and observation monitoring [ ]. Ovarian hyperstimulation syndrome requiring hospitalization[A] indicated by ALL of the following(15): [ ]a) Recent ovarian stimulation with gonadotropins, or evidence on ultrasound of spontaneous emergence of large number of ovarian follicles [ ]b) Evidence of severe ovarian hyperstimulation syndrome indicated by ANY ONE of the following: [ ]i) Abdominal pain unresponsive to oral therapy [ ]ii) Acute respiratory distress syndrome [ ]iii) Electrolyte imbalance ( eg, hyponatremia, hyperkalemia) [ ]iv) Elevated liver enzymes [ ]v) Evidence of thromboembolism [ ]vi) Hemoconcentration (hematocrit greater than 45 % (0.45)) [ ]vii) Inability to maintain oral intake adequate to prevent hemoconcentration [ ]viii) Marked hypotension from baseline (eg, SBP 20 mmHg below patients usual pressure) [ ]ix) Oliguria or anuria [ ]x) Ovarian torsion [ ]xi) Pleural or pericardial effusion on x-ray or echocardiogram [ ]xii) Rapid increase in serum creatinine to greater than 1.2 mg/dL (106 micromoles/L) or creatinine clearance less than 50 mL/min/1.73m2 (0.84 mL/ sec/1.73m2) [ ]xiii) Ruptured ovarian cyst with hemorrhage [ ]xiv) Severe abdominal pain or peritoneal signs [ ]xv) Tense ascites that cannot be managed with paracentesis in outpatient setting [ ]VII.Pelvic infection requiring hospitalization indicated by ANY ONE of the following (16): [ ]a) Outpatient treatment has failed or is not appropriate (eg, inpatient monitoring required) [ ]b) Pelvic abscess [ ]c) Surgical emergency cannot be excluded (eg, rigid abdomen) [ ]d) Vomiting precluding outpatient and observation care management VIII. loss complications requiring inpatient medical treatment indicated by ANY ONE of the following (4)(7)(9): [ ]a) Fever [ ]b) Peritonitis [ ]c) Sepsis [ ]d) Severe abdominal pain [ ]IX. or patient requiring monitoring for severe heart failure, pulmonary disease, or other comorbid condition (eg, peripartum cardiomyopathy) (4)(17) [ ]X. patient with rupture of membranes requiring hospitalization indicated by ANY ONE of the following: [ ]a) Chorioamnionitis, cloudy amniotic fluid, or other evidence of infection [ ]b) compromise or other need for monitoring (11) [ ]c) Gestation longer than 23 weeks and ANY ONE of the following: [ ]i) Abnormal (noncephalic) presentation [ ]ii) Inadequate home environment (eg, home too far from hospital, unable to rapidly return to hospital) [ ]d) Temperature greater than 100.4 degrees F (38 degrees C)( oral) [ ]e) Threatened labor requiring monitoring beyond scope (eg, over 24 hours) of observation Care [ ] XI. complications, including severe lacerations, infections, or retained placenta (19) [ ] XII.Uterine bleeding with high-risk features indicated by ANY ONE of the following (4): [ ]a) Active major hemorrhage (eg, hemorrhage) []b) Coagulopathy with active bleeding [ ]c) Gestational trophoblastic disease (eg, molar ) (20 ) [ ]d) (longer than 23 weeks) and ANY ONE of the following: [ ]i) Pain [ ]ii) Placental abruption, known or suspected [ ]iii) Placenta accrete, known or suspected(21) [ ]iv) Placenta previa, known or suspected [ ]v) Vasa previa [ ]e) Severe anemia [ ]XIII. Obstetric or Gynecologic Disease, condition or symptom for which ANY ONE of the following: [ ]a) Emergency and observation care have failed or are not considered appropriate ( Also use General Criteria: Observation Care Criteria as appropriate) [ ]b) Presence of a General Admission Criteria or Pediatric General Admission Criteria The original [facility] content created by [facility] has been revised. The portions of the content which have been revised are identified through the use of italic text or in bold, and [facility] has neither reviewed nor approved the modified material.All other unmodified content is copyright [facility]. Please see references footnoted in the original [facility] edition 2016 Admission Criteria Met?: Yes DORIAN VARELA Aug 16, 2016 15:29
[2016-08-16 15:34] LABS: PLT ESTIMATE ADEQUATE (ADEQUATE)
[2016-08-16 15:34] LABS: BILIRUBIN,URINE NEGATIVE (NEG); GLUCOSE,URINE >=1000 mg/dL (NEG); NITRITE,URINE NEGATIVE (NEG); PROTEIN,URINE NEGATIVE (NEG-TRACE); UROBILINOGEN,URINE 0.2 mg/dL (0.2 mg/dL)
[2016-08-16 15:35] LABS: ANISOCYTOSIS MOD
[2016-08-16 15:40] LABS: BACTERIA,URINE FEW /HPF (0-FEW); BARBITURATES NEG (NEG); BENZODIAZEPINES NEG (NEG); CANNABINOIDS NEG (NEG); COCAINE NEG (NEG); METHADONE NEG (NEG); OPIATES POS (NEG); PHENCYCLIDINE NEG (NEG); SQUAMOUS EPITHELIAL CELL,UR FEW /LPF; WBC,URINE 0 /HPF (0-4)
[2016-08-16 15:41] LABS: ETHANOL, URINE NEG (NEG)
--- NOTE | 2016-08-16 15:53 | RAD ---
EXAM: Chest, single view. HISTORY: Chest pain. COMPARISON: 08/07/2016. FINDINGS: Frontal view of the chest is obtained. There is stable patchy opacity throughout both lungs likely due to pleural-parenchymal scarring. There is no consolidation, effusion or pneumothorax. There is emphysema. The heart is normal in size. There is a left port catheter with the tip in the superior right atrium.. IMPRESSION: Stable patchy areas of pleural parenchymal scarring superimposed on emphysema. The possibility of underlying interstitial infiltrate is not completely excluded.
[2016-08-16 15:54] LABS: HCO3 ABG 23 mmol/L (21-28); PCO2 ABG 44 mmHg (35-46); PH ABG 7.33 (7.35-7.45); PO2 ABG 55 mmHg (75-108); SAT O2 ABG 88 % (92-99)
[2016-08-16 15:55] LABS: FIO2 ABG 21
[2016-08-16] MEDS ORDERED: IV NORMAL SALINE 1000ML BAG 1,000 ML IV ONE ×2 (16:45→18:15)
[2016-08-16] MEDS ORDERED: methylPREDNISolone SOD SUCC PF 125 MG/2 ML VIAL. IV ONE (17:30)
[2016-08-16] MEDS ORDERED: IPRATRPIUM/ALBUTEROL 0.5/2.5MG 3 ML NEBU. NEB ONE (17:30)
[2016-08-16] MEDS ORDERED: ALBUTEROL SULFATE 2.5 MG/3 ML NEBU. NEB PRN (17:45)
[2016-08-16] MEDS ORDERED: HYDROMORPHONE 4 MG TABLET. PO PRN (17:45)
[2016-08-16] MEDS ORDERED: DEXTROSE 50% 25 GM / 50ML DISP.SYRIN. IV PRN (17:45)
[2016-08-16] MEDS ORDERED: PROMETHAZINE HCL PO PRN (17:45)
[2016-08-16] MEDS ORDERED: PROMETHAZINE 12.5 MG SUPP.RECT. RC PRN (17:45)
[2016-08-16] MEDS ORDERED: LORAZEPAM 0.5 MG TABLET. PO PRN (17:45)
[2016-08-16] MEDS ORDERED: NON FORMULARY ITEM (Albuterol Sulfate (Ventolin Hfa Inhaler) 18 GM) IH PRN (17:45)
[2016-08-16] MEDS ORDERED: ZOLPIDEM 5 MG TABLET. PO PRN (17:45)
[2016-08-16] MEDS ORDERED: PROMETHAZINE HCL PO SCH (17:45)
[2016-08-16] MEDS ORDERED: PROMETHAZINE 12.5 MG TABLET. PO PRN (17:45)
[2016-08-16] MEDS ORDERED: PROMETHAZINE 25 MG SUPP.RECT. RC PRN (17:45)
--- NOTE | 2016-08-16 17:49 | PDOC1 ---
History and Physical Date of Admission Date of Admission DATE: 08/16/16 TIME: 17:42 Identification/Chief Complaint Chief Complaint SOA, buttock abscess Source Source: Chart review, Patient History of Present Illness History of Present Illness 41 y/o AA female with hx of finromyalgia, sarcoid, RA, CARMEN DM 2 on insulin, AHSAN , CKD, non conmplaince, chronic pain and narcotic dependence coming in bec of buttock abscess thatw as I and D at ER and hyperglycemia with BS 400s, tachycardix at 130s after nebs sec to wheezing and transient low O2 sats, Pt poor historian, just go T IV dilaudid and is sleepy Remains sinus tachy, bolus runnig Rest of hx cant be obtained as she falls asleep on me Looking at prev admits, she was here Oct for sepsis with the ff dx: 1. Acute kidney injury. 2. Severe hypokalemia. 3. Acute on chronic pain. 4. Fibromyalgia. 5. Copd exacerbation. 6. Chronic fungal infection. 7. History of multiple DVTs, PE. 8. Obesity. 9. Urinary tract infection, Enterobacter aerogenes. L:ooking at her 30 home meds, she has chronci pain and narc dependence including fentanyl patchm, has bactrim and novolon 20 BID with short acting meal times She is non complaint with CPAP for her CARMEN Past Medical History Cardiovascular: HTN Pulmonary: Asthma, COPD CENTRAL NERVOUS SYSTEM: Periperal neuropathy, Seizure GI: Other Heme/Onc: No pertinent hx Psych: Anxiety, Depression Musculoskeletal: Other Rheumatologic: Fibromyalgia, Rheumatoid arthritis, Other Infectious disease: Bacterial vaginosis Endocrine: Diabetes Past Surgical History Past Surgical History: Other (cant be obatined) Family History Family History: No Significant, Diabetes, Heart Disease, Hypertension Social History Smoke: No ALCOHOL: none Drugs: None Current Problem List Problem List Problems Medical Problems: (1) Abscess, gluteal, right Status: Acute (2) COPD (chronic obstructive pulmonary disease) Status: Acute (3) Uncontrolled diabetes mellitus Status: Acute Problems: Current Medications Current Medications Current Medications Morphine Sulfate 2 mg PRN Q15MIN PRN IV/SQ PAIN GREATER THAN 3/10; Start at 13:45; Stop 08/16/16 at 15:09; Status DC Hydromorphone HCl (Dilaudid) 1 mg PRN Q15MIN PRN IV/SQ PAIN GREATER THAN 3/10 Last administered on 08/16/16 16:17; Start 08/16/16 at 14:15; Stop 08/17/16 at 14:14 Lorazepam (Ativan) 1 mg PRN Q4HRS PRN IV ANXIETY / AGITATION Last administered on 08/16/16 15:07; Start 08/16/16 at 14:15 Albuterol Sulfate (Ventolin Neb Soln) 2.5 mg 1X ONCE NEB Last administered on 08/16/16 14:23; Start 08/16/16 at 14:15; Stop 08/16/16 at 14:16; Status DC Lidocaine/Sodium Bicarbonate 20 ml 20 ml 1X ONCE IJ Last administered on 15:15; Start 08/16/16 at 15:15; Stop 08/16/16 at 15:16; Status DC Sodium Chloride (Iv Sodium Chloride 0.9% 1000ml Bag) 1,000 ml @ 0 mls/hr 1X ONCE IV Last administered on 08/16/16 17:00; Start 08/16/16 at 16:45; Stop 07/21 at 16:46; Status DC Methylprednisolone Sodium Succinate (Solu-Medrol 125mg Vial) 125 mg 1X ONCE IV ; Start 08/16/16 at 17:30; Stop 08/16/16 at 17:31; Status DC Albuterol/ Ipratropium (Duoneb) 3 ml 1X ONCE NEB ; Start 08/16/16 at 17:30; Stop 08/16/16 at 17:31; Status DC Active Scripts Active Promethazine Hcl 25 Mg Supp.rect 25 Mg RC Q6H PRN Promethazine Hcl 12.5 Mg Tablet 1 Tab PO Q6-8HRS PRN Ciprofloxacin Hcl 250 Mg Tablet 250 Mg PO BID Promethazine Hcl 25 Mg Tablet 1 Tab PO PRN Q6HRS Prednisone 50 Mg Tablet 1 Tab PO DAILY Albuterol Sulfate Neb Soln (Albuterol Sulfate) 2.5 Mg/3 Ml Vial.neb 1 Vial NEB PRN Q4HRS Promethazine Hcl 25 Mg Tablet 1 Tab PO Q6-8HRS PRN Zyrtec (Cetirizine Hcl) 10 Mg Tablet 10 Mg PO DAILY Advair 250-50 Diskus (Fluticasone/Salmeterol) 1 Puff Puff 1 Puff INH BID Prednisone 10 Mg Tablet 10 Mg PO DAILY 40mg podaily x3days, then 30mg podaily x3days, then 20mg podaily x3days, then 10mg podaily x3days, then STOP FENTANYL 100mcg/hr (Fentanyl) 1 Each Patch.td72 1 Patch TP Q3DAYS Reported Xarelto (Rivaroxaban) 10 Mg Tablet 1 Tab PO DAILY Acyclovir 200 Mg Capsule 200 Mg PO BID Nystatin 15 Gm Powder 15 Gm TP BID Humulin N (Nph, Human Insulin Isophane) 100 Unit/1 Ml Vial 40 Unit SQ BID Cyclobenzaprine Hcl 5 Mg Tablet 1 Tab PO PRN TID PRN B-12 (Cyanocobalamin (Vitamin B-12)) 1,000 Mcg Tablet 100 Mcg PO DAILY Aspirin 325 Mg Tablet 1 Tab PO DAILY Dilaudid (Hydromorphone Hcl) 4 Mg Tablet 4 Mg PO PRN Q6HRS PRN Last dose given: 2:00 p.m. Next dose due: 6:00 p.m. as needed for pain Trileptal (Oxcarbazepine) 150 Mg Tablet 300 Mg PO BID Last dose given: 9:00 a.m. Next dose due: 9:00 p.m. Topamax (Topiramate) 25 Mg Tablet 200 Mg PO BID Last dose given: 8:15 a.m. Next dose due: 01-27-14 9:00 a.m. Singulair Tablet (Montelukast Sodium) 10 Mg Tablet 10 Mg PO DAILY Last dose given: 9:00 a.m. Next dose due: 01-27-14 9:00 a.m. Ventolin Hfa Inhaler (Albuterol Sulfate) 18 Gm Hfa.aer.ad 18 Gm IH PRN Q4HRS PRN Last dose given: 4:00 p.m. Next dose due: 8:00 p.m. as needed for shortness of breath Pepcid (Famotidine) 20 Mg Tablet 20 Mg PO BID Last dose given: 9:00 a.m. Next dose due: 01-27-14 9:00 a.m. Novolog (Insulin Aspart) 100 Unit/1 Ml Cartridge 12 Unit SQ TIDWMEALS Last dose given: 01-26-14 11:30 a.m. Next dose due: 01-27-14 as needed Neurontin (Gabapentin) 300 Mg Capsule 300 Mg PO TID Last dose given: 2:30 p.m. Next dose due: 8:00 p.m. Imodium Multi-Symptom Rel Cplt (Loperamide Hcl/Simethicone) 1 Each Tablet 1 Each PO PRN DAILY PRN Last dose given: 01-24-14 9:00 a.m. Next dose due: May resume at home as needed for diarrhea Ativan (Lorazepam) 0.5 Mg Tablet 0.5 Mg PO Q12HR PRN Last dose given: 2:00 p.m. Next dose due: 8:00 p.m. as needed for anxiety Ambien (Zolpidem Tartrate) 10 Mg Tablet 10 Mg PO PRN DAILY PRN Allergies Allergies: Coded Allergies: Penicillins (Verified Allergy, Intermediate, 01/25/14) bupropion (Verified Allergy, Intermediate, 01/25/14) ketamine (Verified Allergy, Intermediate, "i flipped out" , 07/13/16) ketorolac (Verified Allergy, Intermediate, 01/25/14) ondansetron (Verified Allergy, Intermediate, ITCHING ALL OVER, 05/14/15) prochlorperazine (Verified Allergy, Intermediate, 07/31/14) PROMETHAZINE OK sulfamethoxazole (Verified Allergy, Intermediate, 01/18/14) tiotropium (Verified Allergy, Intermediate, DUONEB OK, 06/21/14) tramadol (Verified Allergy, Intermediate, TOLERATES HYDROMORPHONE, ) trimethoprim (Verified Allergy, Intermediate, 01/18/14) ROS Review of System cant be obtained Physical Exam General: No acute distress HEENT: Atraumatic Lungs: Normal air movement, Other (dec BS sec to inc AP diameter) Heart: S1S2, RRR Cardiovascular: S1 Breasts: Normal, Rt breast nml w/o mass, Lt breast nml w/o mass, Nipples normal Abdomen: Normal bowel sounds, Soft, No tenderness, No hepatosplenomegaly, No masses Rectal Exam: not examined PELVIC: Nml ext genitalia Extremities: No clubbing, No cyanosis, No edema, Normal pulses, No tenderness/ swelling Skin: No rashes, No breakdown, No significant lesion Neuro: Normal gait, Normal speech, Strength at 5/5 X4 ext, Normal tone, Sensation intact, Cranial nerves 3-12 NL, Reflexes 2+ Psych/Mental Status: Mental status NL, Mood NL Vitals Vitals Vital Signs Date Time Temp Pulse Resp B/P Pulse Ox O2 Delivery O2 Flow Rate FiO2 08/16/16 16:17 24 95 Room Air 08/16/16 16:08 129 144/79 08/16/16 13:20 99.7 99.7 Labs Labs Laboratory Tests Test 08/16/16 14:38 08/16/16 15:18 08/16/16 15:45 White Blood Count 12.9x10^3/uL (4.0-11.0) Red Blood Count 4.44x10^6/uL (3.50-5.40) Hemoglobin 11.2g/dL (12.0-15.5) Hematocrit 36.1% (36.0-47.0) Mean Corpuscular Volume 81fL (79-100) Mean Corpuscular Hemoglobin 25pg (25-35) Mean Corpuscular Hemoglobin Concent 31g/dL (31-37) Red Cell Distribution Width 20.8% (11.5-14.5) Platelet Count 178x10^3/uL (140-400) Neutrophils (%) (Auto) 86% (31-73) Lymphocytes (%) (Auto) 7% (24-48) Monocytes (%) (Auto) 6% (0-9) Eosinophils (%) (Auto) 0% (0-3) Basophils (%) (Auto) 0% (0-3) Neutrophils # (Auto) 11.1x10^3uL (1.8-7.7) Lymphocytes # (Auto) 0.9x10^3/uL (1.0-4.8) Monocytes # (Auto) 0.8x10^3/uL (0.0-1.1) Eosinophils # (Auto) 0.0x10^3/uL (0.0-0.7) Basophils # (Auto) 0.0x10^3/uL (0.0-0.2) Segmented Neutrophils % 84% (35-66) Band Neutrophils % 2% (0-9) Lymphocytes % 10% (24-48) Monocytes % 4% (0-10) Platelet Estimate Adequate (ADEQUATE) Anisocytosis Mod Prothrombin Time 21.9SEC (11.7-14.0) Prothromb Time International Ratio 2.0 (0.8-1.1) D-Dimer (Khadijah) < 0.27ug/mlFEU (0.00-0.50) Sodium Level 139mmol/L (136-145) Potassium Level 4.0mmol/L (3.5-5.1) Chloride Level 102mmol/L (98-107) Carbon Dioxide Level 26mmol/L (21-32) Anion Gap 11 (6-14) Blood Urea Nitrogen 15mg/dL (7-20) Creatinine 1.0mg/dL (0.6-1.0) Estimated GFR (Cockcroft-Gault) 73.9 Glucose Level 422mg/dL (70-99) Calcium Level 9.3mg/dL (8.5-10.1) Magnesium Level 2.2mg/dL (1.8-2.4) Total Bilirubin 0.2mg/dL (0.2-1.0) Direct Bilirubin < 0.1mg/dL (0.0-0.2) Aspartate Amino Transf (AST/SGOT) 7U/L (15-37) Alanine Aminotransferase (ALT/SGPT) 15U/L (14-59) Alkaline Phosphatase 135U/L (46-116) Creatine Kinase 96U/L (26-192) Creatine Kinase MB (Mass) 0.9ng/mL (0.0-3.6) Creatine Kinase MB Relative Index 0.9% (0-4) Troponin I Quantitative < 0.017ng/mL (0.000-0.055) TT-Jan-I-Type Natriuretic Peptide 63pg/mL (0-124) Total Protein 7.1g/dL (6.4-8.2) Albumin 3.6g/dL (3.4-5.0) Lipase 227U/L (73-393) Thyroid Stimulating Hormone (TSH) 0.147uIU/mL (0.358-3.74) Serum Test, Qualitative Negative (NEG) Urine Collection Type Unknown Urine Color Yellow Urine Clarity Clear Urine pH 6.0 Urine Specific [place] 1.015 Urine Protein Negativemg/dL (NEG-TRACE) Urine Glucose (UA) >=1000mg/dL (NEG) Urine Ketones (Stick) Negativemg/dL (NEG) Urine Blood Small (NEG) Urine Nitrite Negative (NEG) Urine Bilirubin Negative (NEG) Urine Urobilinogen Dipstick 0.2mg/dL (0.2 mg/dL) Urine Leukocyte Esterase Negative (NEG) Urine RBC 3-5/HPF (0-2) Urine WBC 0/HPF (0-4) Urine Squamous Epithelial Cells Few/LPF Urine Bacteria Few/HPF (0-FEW) Urine Mucus Mod/LPF Urine Opiates Screen Pos (NEG) Urine Methadone Screen Neg (NEG) Urine Barbiturates Neg (NEG) Urine Phencyclidine Screen Neg (NEG) Urine Amphetamine/Methamphetamine Neg (NEG) Urine Benzodiazepines Screen Neg (NEG) Urine Cocaine Screen Neg (NEG) Urine Cannabinoids Screen Neg (NEG) Urine Ethyl Alcohol Neg (NEG) O2 Saturation 88% (92-99) Arterial Blood pH 7.33 (7.35-7.45) Arterial Blood pCO2 at Patient Temp 44mmHg (35-46) Arterial Blood pO2 at Patient Temp 55mmHg (75-108) Arterial Blood HCO3 23mmol/L (21-28) Arterial Blood Base Excess -3mmol/L (-3-3) FiO2 21 Laboratory Tests Test 08/16/16 14:38 08/16/16 15:18 08/16/16 15:45 White Blood Count 12.9x10^3/uL (4.0-11.0) Red Blood Count 4.44x10^6/uL (3.50-5.40) Hemoglobin 11.2g/dL (12.0-15.5) Hematocrit 36.1% (36.0-47.0) Mean Corpuscular Volume 81fL (79-100) Mean Corpuscular Hemoglobin 25pg (25-35) Mean Corpuscular Hemoglobin Concent 31g/dL (31-37) Red Cell Distribution Width 20.8% (11.5-14.5) Platelet Count 178x10^3/uL (140-400) Neutrophils (%) (Auto) 86% (31-73) Lymphocytes (%) (Auto) 7% (24-48) Monocytes (%) (Auto) 6% (0-9) Eosinophils (%) (Auto) 0% (0-3) Basophils (%) (Auto) 0% (0-3) Neutrophils # (Auto) 11.1x10^3uL (1.8-7.7) Lymphocytes # (Auto) 0.9x10^3/uL (1.0-4.8) Monocytes # (Auto) 0.8x10^3/uL (0.0-1.1) Eosinophils # (Auto) 0.0x10^3/uL (0.0-0.7) Basophils # (Auto) 0.0x10^3/uL (0.0-0.2) Segmented Neutrophils % 84% (35-66) Band Neutrophils % 2% (0-9) Lymphocytes % 10% (24-48) Monocytes % 4% (0-10) Platelet Estimate Adequate (ADEQUATE) Anisocytosis Mod Prothrombin Time 21.9SEC (11.7-14.0) Prothromb Time International Ratio 2.0 (0.8-1.1) D-Dimer (Khadijah) < 0.27ug/mlFEU (0.00-0.50) Sodium Level 139mmol/L (136-145) Potassium Level 4.0mmol/L (3.5-5.1) Chloride Level 102mmol/L (98-107) Carbon Dioxide Level 26mmol/L (21-32) Anion Gap 11 (6-14) Blood Urea Nitrogen 15mg/dL (7-20) Creatinine 1.0mg/dL (0.6-1.0) Estimated GFR (Cockcroft-Gault) 73.9 Glucose Level 422mg/dL (70-99) Calcium Level 9.3mg/dL (8.5-10.1) Magnesium Level 2.2mg/dL (1.8-2.4) Total Bilirubin 0.2mg/dL (0.2-1.0) Direct Bilirubin < 0.1mg/dL (0.0-0.2) Aspartate Amino Transf (AST/SGOT) 7U/L (15-37) Alanine Aminotransferase (ALT/SGPT) 15U/L (14-59) Alkaline Phosphatase 135U/L (46-116) Creatine Kinase 96U/L (26-192) Creatine Kinase MB (Mass) 0.9ng/mL (0.0-3.6) Creatine Kinase MB Relative Index 0.9% (0-4) Troponin I Quantitative < 0.017ng/mL (0.000-0.055) BD-Fii-V-Type Natriuretic Peptide 63pg/mL (0-124) Total Protein 7.1g/dL (6.4-8.2) Albumin 3.6g/dL (3.4-5.0) Lipase 227U/L (73-393) Thyroid Stimulating Hormone (TSH) 0.147uIU/mL (0.358-3.74) Serum Test, Qualitative Negative (NEG) Urine Collection Type Unknown Urine Color Yellow Urine Clarity Clear Urine pH 6.0 Urine Specific [place] 1.015 Urine Protein Negativemg/dL (NEG-TRACE) Urine Glucose (UA) >=1000mg/dL (NEG) Urine Ketones (Stick) Negativemg/dL (NEG) Urine Blood Small (NEG) Urine Nitrite Negative (NEG) Urine Bilirubin Negative (NEG) Urine Urobilinogen Dipstick 0.2mg/dL (0.2 mg/dL) Urine Leukocyte Esterase Negative (NEG) Urine RBC 3-5/HPF (0-2) Urine WBC 0/HPF (0-4) Urine Squamous Epithelial Cells Few/LPF Urine Bacteria Few/HPF (0-FEW) Urine Mucus Mod/LPF Urine Opiates Screen Pos (NEG) Urine Methadone Screen Neg (NEG) Urine Barbiturates Neg (NEG) Urine Phencyclidine Screen Neg (NEG) Urine Amphetamine/Methamphetamine Neg (NEG) Urine Benzodiazepines Screen Neg (NEG) Urine Cocaine Screen Neg (NEG) Urine Cannabinoids Screen Neg (NEG) Urine Ethyl Alcohol Neg (NEG) O2 Saturation 88% (92-99) Arterial Blood pH 7.33 (7.35-7.45) Arterial Blood pCO2 at Patient Temp 44mmHg (35-46) Arterial Blood pO2 at Patient Temp 55mmHg (75-108) Arterial Blood HCO3 23mmol/L (21-28) Arterial Blood Base Excess -3mmol/L (-3-3) FiO2 21 VTE Prophylaxis Ordered VTE Prophylaxis Devices: Yes VTE Pharmacological Prophylaxi: Yes Assessment/Plan Assessment/Plan 1. Acute hypoxemic resipratory failure, sec to obesity hyperventilation syndrome 2,. CARMEN non complaint with CPAP 3. MOrbid Obesity 4,. Buttock abscess s/p I and D at er 5,. DM 2 on insulin with documented non compliance, uncontrolled - BS 400s at ER 6. Fibromyalgia, sarcoid, RA 7. SInus tachycardia after nebs 8. Acute kidney injury. on CKD stage 2 9 Acute on chronic pain. 10. Copd exacerbation. 11. Chronic fungal infection. 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 Urinary tract infection, Enterobacter aerogenes. Plan Resume home emds SSI high dose Check hgba1c Cont PO bactrim Await gram stain and cx of wound debrided at ER CPAP if she recalls her settings nebs ADA WOund care for buttock abscess Supprotive meds ALCON CALLOWAY MD Aug 16, 2016 17:49
[2016-08-16 19:00] VITALS: BP 121/73
[2016-08-16] MEDS ORDERED: LOPERAMIDE 2 MG CAPSULE PO PRN (19:15)
[2016-08-16] MEDS: MORPHINE SULFATE 2 MG/ML DISP.SYRIN. IV PRN ×2 (20:29→23:21)
[2016-08-16] MEDS: ALBUTEROL SULFATE 2.5 MG/3 ML NEBU. NEB PRN (20:47)
[2016-08-16] MEDS: BUDESONIDE 0.5 MG/2 ML NEBU NEB SCH (20:48)
[2016-08-16] MEDS ORDERED: GABAPENTIN 300 MG CAPSULE. PO SCH (21:00)
[2016-08-16] MEDS: ACYCLOVIR 200 MG CAPSULE PO SCH (21:00)
[2016-08-16] MEDS ORDERED: NON FORMULARY ITEM (Fluticasone/Salmeterol (Advair 250-50 Diskus) 1 PUFF) INH SCH (21:00)
[2016-08-16] MEDS ORDERED: CIPROFLOXACIN HCL 250 MG TABLET PO SCH (21:00)
[2016-08-16] MEDS: NYSTATIN TOPICAL POWDER 15GM BOTTLE. TP SCH (21:00)
[2016-08-16] MEDS: FAMOTIDINE 20 MG TABLET. PO SCH (21:25)
[2016-08-16] MEDS: TOPIRAMATE 25 MG TABLET. PO SCH (21:26)
[2016-08-16] MEDS: OXCARBAZEPINE 300 MG TABLET. PO SCH (21:26)
[2016-08-16] MEDS: INSULIN DETEMIR 300 UNITS/3 ML INSULN.PEN. SQ SCH (21:31)
[2016-08-16 23:00] VITALS: BP 125/63
[2016-08-17] MEDS: LORAZEPAM 2 MG/ML VIAL IV PRN ×5 (02:43→22:45)
[2016-08-17] MEDS: MORPHINE SULFATE 2 MG/ML DISP.SYRIN. IV PRN ×5 (02:44→22:54)
[2016-08-17 03:00] VITALS: BP 117/68
[2016-08-17 07:00] VITALS: BP 117/72
[2016-08-17] MEDS ORDERED: INSULIN ASPART 300 UNITS/3 ML INSULN.PEN SQ SCH (07:30)
[2016-08-17] MEDS: BUDESONIDE 0.5 MG/2 ML NEBU NEB SCH ×2 (07:34→21:20)
[2016-08-17] MEDS: INSULIN ASPART 300 UNITS/3 ML INSULN.PEN SQ SCH ×5 (08:19→17:00)
[2016-08-17] MEDS: NYSTATIN TOPICAL POWDER 15GM BOTTLE. TP SCH ×2 (09:00→21:20)
[2016-08-17] MEDS ORDERED: CETIRIZINE HCL 10 MG TABLET PO SCH (09:00)
[2016-08-17] MEDS ORDERED: NON FORMULARY ITEM (Prednisone 1 TAB) PO SCH (09:00)
[2016-08-17] MEDS ORDERED: RIVAROXABAN 10 MG TABLET. PO SCH ×2 (09:00→17:00)
[2016-08-17] MEDS: INSULIN DETEMIR 300 UNITS/3 ML INSULN.PEN. SQ SCH ×2 (09:51→21:30)
[2016-08-17] MEDS ORDERED: PROMETHAZINE 12.5 MG in IV NORMAL SALINE 50ML 50 ML IV PRN (11:15)
[2016-08-17 11:20] VITALS: BP 116/70
[2016-08-17] MEDS: HYDROMORPHONE 2 MG/ML VIAL. IVP PRN ×3 (12:19→21:20)
--- NOTE | 2016-08-17 12:54 | PDOC ---
PROGRESS NOTES Chief Complaint Chief Complaint 1. Acute hypoxemic resipratory failure, sec to obesity hyperventilation syndrome 2,. CARMEN non complaint with CPAP 3. MOrbid Obesity 4,. Buttock abscess s/p I and D at er 5,. DM 2 on insulin with documented non compliance, uncontrolled - BS 400s at ER 6. Fibromyalgia, sarcoid, RA 7. SInus tachycardia after nebs 8. Acute kidney injury. on CKD stage 2 9 Acute on chronic pain. 10. Copd exacerbation. 11. Chronic fungal infection. 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 Urinary tract infection, Enterobacter aerogenes. History of Present Illness History of Present Illness Sleepy yet requests for iV dialudid PAin in the buttock area, shows me the I and D at ER level BS high side - got solu at ER WHeezy - yet does not want prednisone, ok with solu Very difficult interaction, wants IV narcs and not PO pred Does not want to use CPAP Grans tain wound shows many WBC - and likely gram positive NO fevers, no white ct Vitals Vitals Vital Signs Date Time Temp Pulse Resp B/P Pulse Ox O2 Delivery O2 Flow Rate FiO2 08/17/16 12:19 18 Nasal Cannula 2.0 08/17/16 11:20 97.9 116 116/70 97 97.9 Physical Exam General: No acute distress Lungs: Clear, Wheezing Abdomen: Normal bowel sounds, Soft, No tenderness, No hepatosplenomegaly, No masses Extremities: No clubbing, No cyanosis, No edema, Normal pulses, No tenderness/ swelling Skin: No rashes, No breakdown, No significant lesion Labs LABS Laboratory Tests Test 08/16/16 14:38 08/16/16 15:18 08/16/16 15:45 08/16/16 19:57 White Blood Count 12.9x10^3/uL (4.0-11.0) Red Blood Count 4.44x10^6/uL (3.50-5.40) Hemoglobin 11.2g/dL (12.0-15.5) Hematocrit 36.1% (36.0-47.0) Mean Corpuscular Volume 81fL (79-100) Mean Corpuscular Hemoglobin 25pg (25-35) Mean Corpuscular Hemoglobin Concent 31g/dL (31-37) Red Cell Distribution Width 20.8% (11.5-14.5) Platelet Count 178x10^3/uL (140-400) Neutrophils (%) (Auto) 86% (31-73) Lymphocytes (%) (Auto) 7% (24-48) Monocytes (%) (Auto) 6% (0-9) Eosinophils (%) (Auto) 0% (0-3) Basophils (%) (Auto) 0% (0-3) Neutrophils # (Auto) 11.1x10^3uL (1.8-7.7) Lymphocytes # (Auto) 0.9x10^3/uL (1.0-4.8) Monocytes # (Auto) 0.8x10^3/uL (0.0-1.1) Eosinophils # (Auto) 0.0x10^3/uL (0.0-0.7) Basophils # (Auto) 0.0x10^3/uL (0.0-0.2) Segmented Neutrophils % 84% (35-66) Band Neutrophils % 2% (0-9) Lymphocytes % 10% (24-48) Monocytes % 4% (0-10) Platelet Estimate Adequate (ADEQUATE) Anisocytosis Mod Prothrombin Time 21.9SEC (11.7-14.0) Prothromb Time International Ratio 2.0 (0.8-1.1) D-Dimer (Khadijah) < 0.27ug/mlFEU (0.00-0.50) Sodium Level 139mmol/L (136-145) Potassium Level 4.0mmol/L (3.5-5.1) Chloride Level 102mmol/L (98-107) Carbon Dioxide Level 26mmol/L (21-32) Anion Gap 11 (6-14) Blood Urea Nitrogen 15mg/dL (7-20) Creatinine 1.0mg/dL (0.6-1.0) Estimated GFR (Cockcroft-Gault) 73.9 Glucose Level 422mg/dL (70-99) Hemoglobin A1c 7.6% (4.8-5.6) Calcium Level 9.3mg/dL (8.5-10.1) Magnesium Level 2.2mg/dL (1.8-2.4) Total Bilirubin 0.2mg/dL (0.2-1.0) Direct Bilirubin < 0.1mg/dL (0.0-0.2) Aspartate Amino Transf (AST/SGOT) 7U/L (15-37) Alanine Aminotransferase (ALT/SGPT) 15U/L (14-59) Alkaline Phosphatase 135U/L (46-116) Creatine Kinase 96U/L (26-192) Creatine Kinase MB (Mass) 0.9ng/mL (0.0-3.6) Creatine Kinase MB Relative Index 0.9% (0-4) Troponin I Quantitative < 0.017ng/mL (0.000-0.055) [id number]-Type Natriuretic Peptide 63pg/mL (0-124) Total Protein 7.1g/dL (6.4-8.2) Albumin 3.6g/dL (3.4-5.0) Lipase 227U/L (73-393) Thyroid Stimulating Hormone (TSH) 0.147uIU/mL (0.358-3.74) Serum Test, Qualitative Negative (NEG) Urine Collection Type Unknown Urine Color Yellow Urine Clarity Clear Urine pH 6.0 Urine Specific [place] 1.015 Urine Protein Negativemg/dL (NEG-TRACE) Urine Glucose (UA) >=1000mg/dL (NEG) Urine Ketones (Stick) Negativemg/dL (NEG) Urine Blood Small (NEG) Urine Nitrite Negative (NEG) Urine Bilirubin Negative (NEG) Urine Urobilinogen Dipstick 0.2mg/dL (0.2 mg/dL) Urine Leukocyte Esterase Negative (NEG) Urine RBC 3-5/HPF (0-2) Urine WBC 0/HPF (0-4) Urine Squamous Epithelial Cells Few/LPF Urine Bacteria Few/HPF (0-FEW) Urine Mucus Mod/LPF Urine Opiates Screen Pos (NEG) Urine Methadone Screen Neg (NEG) Urine Barbiturates Neg (NEG) Urine Phencyclidine Screen Neg (NEG) Urine Amphetamine/Methamphetamine Neg (NEG) Urine Benzodiazepines Screen Neg (NEG) Urine Cocaine Screen Neg (NEG) Urine Cannabinoids Screen Neg (NEG) Urine Ethyl Alcohol Neg (NEG) O2 Saturation 88% (92-99) Arterial Blood pH 7.33 (7.35-7.45) Arterial Blood pCO2 at Patient Temp 44mmHg (35-46) Arterial Blood pO2 at Patient Temp 55mmHg (75-108) Arterial Blood HCO3 23mmol/L (21-28) Arterial Blood Base Excess -3mmol/L (-3-3) FiO2 21 Glucose (Fingerstick) 306mg/dL (70-99) Test 08/17/16 07:45 08/17/16 10:40 Glucose (Fingerstick) 290mg/dL (70-99) 278mg/dL (70-99) Review of Systems Review of Systems no fevrs, no cp, (+) buttock pain Assessment and Plan Assessmemt and Plan Start IV solu 40 IV BID Duonebs scheduled Dc PO dilaudid and gabapentin Low dose IV dilaudid with narcan standby Home carla Problems Medical Problems: (1) Abscess, gluteal, right Status: Acute (2) COPD (chronic obstructive pulmonary disease) Status: Acute (3) COPD exacerbation Status: Acute (4) Gluteal abscess Status: Acute (5) Hyperglycemia Status: Acute (6) Uncontrolled diabetes mellitus Status: Acute Problems: Comment Review of Relevant I have reviewed the following items tab (where applicable) has been applied. Labs Laboratory Tests Test 08/16/16 14:38 08/16/16 15:18 08/16/16 15:45 08/16/16 19:57 White Blood Count 12.9x10^3/uL (4.0-11.0) Red Blood Count 4.44x10^6/uL (3.50-5.40) Hemoglobin 11.2g/dL (12.0-15.5) Hematocrit 36.1% (36.0-47.0) Mean Corpuscular Volume 81fL (79-100) Mean Corpuscular Hemoglobin 25pg (25-35) Mean Corpuscular Hemoglobin Concent 31g/dL (31-37) Red Cell Distribution Width 20.8% (11.5-14.5) Platelet Count 178x10^3/uL (140-400) Neutrophils (%) (Auto) 86% (31-73) Lymphocytes (%) (Auto) 7% (24-48) Monocytes (%) (Auto) 6% (0-9) Eosinophils (%) (Auto) 0% (0-3) Basophils (%) (Auto) 0% (0-3) Neutrophils # (Auto) 11.1x10^3uL (1.8-7.7) Lymphocytes # (Auto) 0.9x10^3/uL (1.0-4.8) Monocytes # (Auto) 0.8x10^3/uL (0.0-1.1) Eosinophils # (Auto) 0.0x10^3/uL (0.0-0.7) Basophils # (Auto) 0.0x10^3/uL (0.0-0.2) Segmented Neutrophils % 84% (35-66) Band Neutrophils % 2% (0-9) Lymphocytes % 10% (24-48) Monocytes % 4% (0-10) Platelet Estimate Adequate (ADEQUATE) Anisocytosis Mod Prothrombin Time 21.9SEC (11.7-14.0) Prothromb Time International Ratio 2.0 (0.8-1.1) D-Dimer (Khadijah) < 0.27ug/mlFEU (0.00-0.50) Sodium Level 139mmol/L (136-145) Potassium Level 4.0mmol/L (3.5-5.1) Chloride Level 102mmol/L (98-107) Carbon Dioxide Level 26mmol/L (21-32) Anion Gap 11 (6-14) Blood Urea Nitrogen 15mg/dL (7-20) Creatinine 1.0mg/dL (0.6-1.0) Estimated GFR (Cockcroft-Gault) 73.9 Glucose Level 422mg/dL (70-99) Hemoglobin A1c 7.6% (4.8-5.6) Calcium Level 9.3mg/dL (8.5-10.1) Magnesium Level 2.2mg/dL (1.8-2.4) Total Bilirubin 0.2mg/dL (0.2-1.0) Direct Bilirubin < 0.1mg/dL (0.0-0.2) Aspartate Amino Transf (AST/SGOT) 7U/L (15-37) Alanine Aminotransferase (ALT/SGPT) 15U/L (14-59) Alkaline Phosphatase 135U/L (46-116) Creatine Kinase 96U/L (26-192) Creatine Kinase MB (Mass) 0.9ng/mL (0.0-3.6) Creatine Kinase MB Relative Index 0.9% (0-4) Troponin I Quantitative < 0.017ng/mL (0.000-0.055) XZ-[id number]-Type Natriuretic Peptide 63pg/mL (0-124) Total Protein 7.1g/dL (6.4-8.2) Albumin 3.6g/dL (3.4-5.0) Lipase 227U/L (73-393) Thyroid Stimulating Hormone (TSH) 0.147uIU/mL (0.358-3.74) Serum Test, Qualitative Negative (NEG) Urine Collection Type Unknown Urine Color Yellow Urine Clarity Clear Urine pH 6.0 Urine Specific [place] 1.015 Urine Protein Negativemg/dL (NEG-TRACE) Urine Glucose (UA) >=1000mg/dL (NEG) Urine Ketones (Stick) Negativemg/dL (NEG) Urine Blood Small (NEG) Urine Nitrite Negative (NEG) Urine Bilirubin Negative (NEG) Urine Urobilinogen Dipstick 0.2mg/dL (0.2 mg/dL) Urine Leukocyte Esterase Negative (NEG) Urine RBC 3-5/HPF (0-2) Urine WBC 0/HPF (0-4) Urine Squamous Epithelial Cells Few/LPF Urine Bacteria Few/HPF (0-FEW) Urine Mucus Mod/LPF Urine Opiates Screen Pos (NEG) Urine Methadone Screen Neg (NEG) Urine Barbiturates Neg (NEG) Urine Phencyclidine Screen Neg (NEG) Urine Amphetamine/Methamphetamine Neg (NEG) Urine Benzodiazepines Screen Neg (NEG) Urine Cocaine Screen Neg (NEG) Urine Cannabinoids Screen Neg (NEG) Urine Ethyl Alcohol Neg (NEG) O2 Saturation 88% (92-99) Arterial Blood pH 7.33 (7.35-7.45) Arterial Blood pCO2 at Patient Temp 44mmHg (35-46) Arterial Blood pO2 at Patient Temp 55mmHg (75-108) Arterial Blood HCO3 23mmol/L (21-28) Arterial Blood Base Excess -3mmol/L (-3-3) FiO2 21 Glucose (Fingerstick) 306mg/dL (70-99) Test 08/17/16 07:45 08/17/16 10:40 Glucose (Fingerstick) 290mg/dL (70-99) 278mg/dL (70-99) Laboratory Tests Test 08/16/16 14:38 08/16/16 15:18 08/16/16 15:45 08/16/16 19:57 White Blood Count 12.9x10^3/uL (4.0-11.0) Red Blood Count 4.44x10^6/uL (3.50-5.40) Hemoglobin 11.2g/dL (12.0-15.5) Hematocrit 36.1% (36.0-47.0) Mean Corpuscular Volume 81fL (79-100) Mean Corpuscular Hemoglobin 25pg (25-35) Mean Corpuscular Hemoglobin Concent 31g/dL (31-37) Red Cell Distribution Width 20.8% (11.5-14.5) Platelet Count 178x10^3/uL (140-400) Neutrophils (%) (Auto) 86% (31-73) Lymphocytes (%) (Auto) 7% (24-48) Monocytes (%) (Auto) 6% (0-9) Eosinophils (%) (Auto) 0% (0-3) Basophils (%) (Auto) 0% (0-3) Neutrophils # (Auto) 11.1x10^3uL (1.8-7.7) Lymphocytes # (Auto) 0.9x10^3/uL (1.0-4.8) Monocytes # (Auto) 0.8x10^3/uL (0.0-1.1) Eosinophils # (Auto) 0.0x10^3/uL (0.0-0.7) Basophils # (Auto) 0.0x10^3/uL (0.0-0.2) Segmented Neutrophils % 84% (35-66) Band Neutrophils % 2% (0-9) Lymphocytes % 10% (24-48) Monocytes % 4% (0-10) Platelet Estimate Adequate (ADEQUATE) Anisocytosis Mod Prothrombin Time 21.9SEC (11.7-14.0) Prothromb Time International Ratio 2.0 (0.8-1.1) D-Dimer (Khadijah) < 0.27ug/mlFEU (0.00-0.50) Sodium Level 139mmol/L (136-145) Potassium Level 4.0mmol/L (3.5-5.1) Chloride Level 102mmol/L (98-107) Carbon Dioxide Level 26mmol/L (21-32) Anion Gap 11 (6-14) Blood Urea Nitrogen 15mg/dL (7-20) Creatinine 1.0mg/dL (0.6-1.0) Estimated GFR (Cockcroft-Gault) 73.9 Glucose Level 422mg/dL (70-99) Hemoglobin A1c 7.6% (4.8-5.6) Calcium Level 9.3mg/dL (8.5-10.1) Magnesium Level 2.2mg/dL (1.8-2.4) Total Bilirubin 0.2mg/dL (0.2-1.0) Direct Bilirubin < 0.1mg/dL (0.0-0.2) Aspartate Amino Transf (AST/SGOT) 7U/L (15-37) Alanine Aminotransferase (ALT/SGPT) 15U/L (14-59) Alkaline Phosphatase 135U/L (46-116) Creatine Kinase 96U/L (26-192) Creatine Kinase MB (Mass) 0.9ng/mL (0.0-3.6) Creatine Kinase MB Relative Index 0.9% (0-4) Troponin I Quantitative < 0.017ng/mL (0.000-0.055) HH-Xrj-M-Type Natriuretic Peptide 63pg/mL (0-124) Total Protein 7.1g/dL (6.4-8.2) Albumin 3.6g/dL (3.4-5.0) Lipase 227U/L (73-393) Thyroid Stimulating Hormone (TSH) 0.147uIU/mL (0.358-3.74) Serum Test, Qualitative Negative (NEG) Urine Collection Type Unknown Urine Color Yellow Urine Clarity Clear Urine pH 6.0 Urine Specific [place] 1.015 Urine Protein Negativemg/dL (NEG-TRACE) Urine Glucose (UA) >=1000mg/dL (NEG) Urine Ketones (Stick) Negativemg/dL (NEG) Urine Blood Small (NEG) Urine Nitrite Negative (NEG) Urine Bilirubin Negative (NEG) Urine Urobilinogen Dipstick 0.2mg/dL (0.2 mg/dL) Urine Leukocyte Esterase Negative (NEG) Urine RBC 3-5/HPF (0-2) Urine WBC 0/HPF (0-4) Urine Squamous Epithelial Cells Few/LPF Urine Bacteria Few/HPF (0-FEW) Urine Mucus Mod/LPF Urine Opiates Screen Pos (NEG) Urine Methadone Screen Neg (NEG) Urine Barbiturates Neg (NEG) Urine Phencyclidine Screen Neg (NEG) Urine Amphetamine/Methamphetamine Neg (NEG) Urine Benzodiazepines Screen Neg (NEG) Urine Cocaine Screen Neg (NEG) Urine Cannabinoids Screen Neg (NEG) Urine Ethyl Alcohol Neg (NEG) O2 Saturation 88% (92-99) Arterial Blood pH 7.33 (7.35-7.45) Arterial Blood pCO2 at Patient Temp 44mmHg (35-46) Arterial Blood pO2 at Patient Temp 55mmHg (75-108) Arterial Blood HCO3 23mmol/L (21-28) Arterial Blood Base Excess -3mmol/L (-3-3) FiO2 21 Glucose (Fingerstick) 306mg/dL (70-99) Test 08/17/16 07:45 08/17/16 10:40 Glucose (Fingerstick) 290mg/dL (70-99) 278mg/dL (70-99) Microbiology 08/16/16 Gram Stain - Final, Complete Medications Current Medications Morphine Sulfate 2 mg PRN Q15MIN PRN IV/SQ PAIN GREATER THAN 3/10; Start at 13:45; Stop 08/16/16 at 15:09; Status DC Hydromorphone HCl (Dilaudid) 1 mg PRN Q15MIN PRN IV/SQ PAIN GREATER THAN 3/10 Last administered on 08/16/16 16:17; Start 08/16/16 at 14:15; Stop 08/16/16 at 17:43; Status DC Lorazepam (Ativan) 1 mg PRN Q4HRS PRN IV ANXIETY / AGITATION Last administered on 08/17/16 10:32; Start 08/16/16 at 14:15 Albuterol Sulfate (Ventolin Neb Soln) 2.5 mg 1X ONCE NEB Last administered on 08/16/16 14:23; Start 08/16/16 at 14:15; Stop 08/16/16 at 14:16; Status DC Lidocaine/Sodium Bicarbonate 20 ml 20 ml 1X ONCE IJ Last administered on 15:15; Start 08/16/16 at 15:15; Stop 08/16/16 at 15:16; Status DC Sodium Chloride (Iv Sodium Chloride 0.9% 1000ml Bag) 1,000 ml @ 0 mls/hr 1X ONCE IV Last administered on 08/16/16 17:00; Start 08/16/16 at 16:45; Stop 07/21 at 16:46; Status DC Methylprednisolone Sodium Succinate (Solu-Medrol 125mg Vial) 125 mg 1X ONCE IV Last administered on 08/16/16 17:43; Start 08/16/16 at 17:30; Stop 08/16/16 at 17:31; Status DC Albuterol/ Ipratropium (Duoneb) 3 ml 1X ONCE NEB Last administered on 17:44; Start 08/16/16 at 17:30; Stop 08/16/16 at 17:31; Status DC Morphine Sulfate 2 mg PRN Q2HR PRN IV pain Last administered on 08/17/16 10:33 ; Start 08/16/16 at 17:45 Zolpidem Tartrate (Ambien) 5 mg PRN QHS PRN PO INSOMNIA, MAY REPEAT IN 1HR; Start 08/16/16 at 17:45 Insulin Aspart (Novolog) 0-9 UNITS TIDWMEALS SQ Last administered on 08/17/16 12:39; Start 08/17/16 at 08:00 Dextrose 12.5 gm PRN Q15MIN PRN IV SEE COMMENTS; Start 08/16/16 at 17:45 Acyclovir (Zovirax) 200 mg BID PO ; Start 08/16/16 at 21:00 Albuterol Sulfate (Ventolin Neb Soln) 2.5 mg PRN Q4HRS PRN NEB wheezes; Start 08/16/16 at 17:45; Stop 08/16/16 at 19:11; Status DC Aspirin (Jorge Aspirin) 325 mg DAILY PO ; Start 08/17/16 at 09:00 Cetirizine HCl (Zyrtec) 10 mg DAILY PO ; Start 08/17/16 at 09:00 Ciprofloxacin (Cipro) 250 mg BID PO Last administered on 08/16/16 21:25; Start 08/16/16 at 21:00 Cyanocobalamin (Vitamin B-12) 100 mcg DAILY PO ; Start 08/17/16 at 09:00 Famotidine (Pepcid) 20 mg BID PO Last administered on 08/16/16 21:25; Start at 21:00 Gabapentin (Neurontin) 300 mg TID PO Last administered on 08/16/16 21:25; Start 08/16/16 at 21:00 Hydromorphone HCl (Dilaudid) 4 mg PRN Q6HRS PRN PO PAIN; Start 08/16/16 at 17: 45 Lorazepam (Ativan) 0.5 mg PRN Q12HRS PRN PO ANXIETY / AGITATION; Start at 17:45 Montelukast Sodium (Singulair) 10 mg DAILY PO ; Start 08/17/16 at 09:00 Insulin Detemir (Levemir) 40 units BID SQ Last administered on 08/17/16 09:51 ; Start 08/16/16 at 21:00 Nystatin (Nystop) 15 axel BID TP ; Start 08/16/16 at 21:00 Promethazine HCl (Phenergan) 12.5 mg PRN TID PRN PO NAUSEA; Start 08/16/16 at 17:45 Promethazine HCl (Phenergan) 25 mg PRN Q6HRS PRN RC NAUSEA/VOMITING; Start 07/21 at 17:45 Promethazine HCl (Phenergan) 12.5 mg PRN TID PRN RC NAUSEA; Start 08/16/16 at 17:45 Rivaroxaban (Xarelto) 10 mg DAILY PO ; Start 08/17/16 at 09:00 Topiramate (Topamax) 200 mg BID PO Last administered on 08/16/16 21:26; Start 08/16/16 at 21:00 Non-Formulary Medication 18 gm PRN Q4HRS PRN IH SHORTNESS OF BREATH; Start 07/21 at 17:45; Status UNV Cyclobenzaprine HCl (Flexeril) 10 mg PRN Q6HRS PRN PO MUSCLE SPASMS; Start 07/21 at 19:15 Non-Formulary Medication 1 puff BID INH ; Start 08/16/16 at 21:00; Status UNV Insulin Aspart (Novolog) 12 units TIDBFRMEAL SQ Last administered on 08/17/16 08:19; Start 08/17/16 at 07:30; Stop 08/17/16 at 11:39; Status DC Loperamide HCl (Imodium) 2 mg PRN DAILY PRN PO DIARRHEA; Start 08/16/16 at 19: 15 Oxcarbazepine (Trileptal) 300 mg BID PO Last administered on 08/16/16 21:26; Start 08/16/16 at 21:00 Non-Formulary Medication 1 tab DAILY PO ; Start 08/17/16 at 09:00; Status UNV Non-Formulary Medication 1 tab PRN Q6HRS PO ; Start 08/16/16 at 17:45; Status UNV Non-Formulary Medication 1 tab 1 tab Q6-8HRS PRN PO NAUSEA; Start 08/16/16 at 17 :45; Status UNV Sodium Chloride (Iv Sodium Chloride 0.9% 1000ml Bag) 1,000 ml @ 0 mls/hr 1X ONCE IV Last administered on 08/16/16 18:26; Start 08/16/16 at 18:15; Stop 07/21 at 19:02; Status DC Budesonide (Pulmicort) 0.5 mg RTBID NEB Last administered on 08/17/16 07:34; Start 08/16/16 at 20:00 Albuterol Sulfate 2.5 mg 2.5 mg PRN Q6HRS PRN NEB wheezes Last administered on 08/16/16 20:47; Start 08/16/16 at 19:15 Promethazine HCl/ Sodium Chloride (Phenergan/Iv Sodium Chloride 0.9% 50ml) 50.5 ml @ 151.5 mls/ hr PRN Q6HRS PRN IV NAUSEA/VOMITING Last administered on 11:49; Start 08/17/16 at 11:15 Insulin Aspart (Novolog) 15 units TIDBFRMEAL SQ Last administered on 08/17/16 12:39; Start 08/17/16 at 12:00 Hydromorphone HCl (Dilaudid) 0.2 mg PRN Q4HRS PRN IVP PAIN Last administered on 08/17/16 12:19; Start 08/17/16 at 11:45 Active Scripts Active Phenergan (Promethazine HCl) 12.5 Mg Supp.rect 12.5 Mg RC PRN Q6-8HRS PRN Promethazine Hcl 25 Mg Supp.rect 25 Mg RC Q6H PRN Promethazine Hcl 12.5 Mg Tablet 1 Tab PO Q6-8HRS PRN Ciprofloxacin Hcl 250 Mg Tablet 250 Mg PO BID Promethazine Hcl 25 Mg Tablet 1 Tab PO PRN Q6HRS Prednisone 50 Mg Tablet 1 Tab PO DAILY Albuterol Sulfate Neb Soln (Albuterol Sulfate) 2.5 Mg/3 Ml Vial.neb 1 Vial NEB PRN Q4HRS Promethazine Hcl 25 Mg Tablet 1 Tab PO Q6-8HRS PRN Zyrtec (Cetirizine Hcl) 10 Mg Tablet 10 Mg PO DAILY Advair 250-50 Diskus (Fluticasone/Salmeterol) 1 Puff Puff 1 Puff INH BID Prednisone 10 Mg Tablet 10 Mg PO DAILY 40mg podaily x3days, then 30mg podaily x3days, then 20mg podaily x3days, then 10mg podaily x3days, then STOP FENTANYL 100mcg/hr (Fentanyl) 1 Each Patch.td72 1 Patch TP Q3DAYS Reported Xarelto (Rivaroxaban) 10 Mg Tablet 1 Tab PO DAILY Acyclovir 200 Mg Capsule 200 Mg PO BID Nystatin 15 Gm Powder 15 Gm TP BID Humulin N (Nph, Human Insulin Isophane) 100 Unit/1 Ml Vial 40 Unit SQ BID Cyclobenzaprine Hcl 5 Mg Tablet 1 Tab PO PRN TID PRN B-12 (Cyanocobalamin (Vitamin B-12)) 1,000 Mcg Tablet 100 Mcg PO DAILY Aspirin 325 Mg Tablet 1 Tab PO DAILY Dilaudid (Hydromorphone Hcl) 4 Mg Tablet 4 Mg PO PRN Q6HRS PRN Last dose given: 2:00 p.m. Next dose due: 6:00 p.m. as needed for pain Trileptal (Oxcarbazepine) 150 Mg Tablet 300 Mg PO BID Last dose given: 9:00 a.m. Next dose due: 9:00 p.m. Topamax (Topiramate) 25 Mg Tablet 200 Mg PO BID Last dose given: 8:15 a.m. Next dose due: 01-27-14 9:00 a.m. Singulair Tablet (Montelukast Sodium) 10 Mg Tablet 10 Mg PO DAILY Last dose given: 9:00 a.m. Next dose due: 01-27-14 9:00 a.m. Ventolin Hfa Inhaler (Albuterol Sulfate) 18 Gm Hfa.aer.ad 18 Gm IH PRN Q4HRS PRN Last dose given: 4:00 p.m. Next dose due: 8:00 p.m. as needed for shortness of breath Pepcid (Famotidine) 20 Mg Tablet 20 Mg PO BID Last dose given: 9:00 a.m. Next dose due: 01-27-14 9:00 a.m. Novolog (Insulin Aspart) 100 Unit/1 Ml Cartridge 12 Unit SQ TIDWMEALS Last dose given: 01-26-14 11:30 a.m. Next dose due: 01-27-14 as needed Neurontin (Gabapentin) 300 Mg Capsule 300 Mg PO TID Last dose given: 2:30 p.m. Next dose due: 8:00 p.m. Imodium Multi-Symptom Rel Cplt (Loperamide Hcl/Simethicone) 1 Each Tablet 1 Each PO PRN DAILY PRN Last dose given: 01-24-14 9:00 a.m. Next dose due: May resume at home as needed for diarrhea Ativan (Lorazepam) 0.5 Mg Tablet 0.5 Mg PO Q12HR PRN Last dose given: 2:00 p.m. Next dose due: 8:00 p.m. as needed for anxiety Ambien (Zolpidem Tartrate) 10 Mg Tablet 10 Mg PO PRN DAILY PRN Vitals/I & O Vital Sign - Last 24 Hours 08/16/16 08/16/16 08/16/16 08/16/16 13:20 13:51 14:21 14:23 Temp 99.7 99.7 Pulse 134 124 118 Resp 22 18 14 B/P 139/75 109/69 114/79 Pulse Ox 94 97 97 97 O2 Delivery Room Air Room Air Room Air Room Air 08/16/16 08/16/16 08/16/16 08/16/16 14:51 15:01 16:08 16:17 Pulse 126 129 Resp 27 27 24 B/P 167/67 144/79 Pulse Ox 97 95 95 O2 Delivery Room Air Room Air Room Air 08/16/16 08/16/16 08/16/16 08/16/16 16:48 17:09 17:39 17:44 Pulse 150 124 122 Resp 24 14 14 B/P 148/78 131/80 128/81 Pulse Ox 97 92 97 97 O2 Delivery Room Air Room Air Room Air Room Air 08/16/16 08/16/16 08/16/16 08/16/16 19:00 20:00 20:29 20:51 Temp 98.8 98.8 Pulse 106 Resp 20 20 B/P 121/73 Pulse Ox 95 97 95 O2 Delivery Room Air Room Air Room Air O2 Flow Rate 2.0 08/16/16 08/16/16 08/16/16 08/17/16 20:54 23:00 23:21 02:44 Temp 97.5 97.5 Pulse 115 Resp 22 20 18 B/P 125/63 Pulse Ox 95 98 95 O2 Delivery Room Air Nasal Cannula Nasal Cannula Nasal Cannula O2 Flow Rate 2.0 2.0 2.0 08/17/16 08/17/16 08/17/16 08/17/16 03:00 06:10 06:40 07:00 Temp 97.9 98.1 97.9 98.1 Pulse 112 111 Resp 20 20 20 B/P 117/68 117/72 Pulse Ox 98 98 96 97 O2 Delivery Nasal Cannula Room Air O2 Flow Rate 2.0 2.0 2.0 08/17/16 08/17/16 08/17/16 08/17/16 07:35 08:45 09:15 10:33 Resp 20 20 20 Pulse Ox 96 O2 Delivery Nasal Cannula Room Air Room Air Nasal Cannula O2 Flow Rate 2.0 08/17/16 08/17/16 11:20 12:19 Temp 97.9 97.9 Pulse 116 Resp 19 18 B/P 116/70 Pulse Ox 97 O2 Delivery Nasal Cannula Nasal Cannula O2 Flow Rate 2.0 2.0 Intake and Output 08/16/16 08/16/16 08/17/16 15:00 23:00 07:00 Intake Total 1250 ml 120 ml Output Total 1500 ml Balance 1250 ml -1380 ml ALCON CALLOWAY MD Aug 17, 2016 12:54
[2016-08-17] MEDS ORDERED: ANTI-COAG MONITOR BY PHARMACY. MC PRN (13:30)
[2016-08-17] MEDS: ASPIRIN 325 MG TABLET PO SCH (14:49)
[2016-08-17] MEDS: FAMOTIDINE 20 MG TABLET. PO SCH ×2 (14:49→22:14)
[2016-08-17] MEDS: TOPIRAMATE 25 MG TABLET. PO SCH ×2 (14:49→22:13)
[2016-08-17] MEDS: methylPREDNISolone SOD SUCC PF 40 MG/ML VIAL. IV SCH ×2 (14:50→21:20)
[2016-08-17] MEDS: MONTELUKAST SODIUM 10 MG TABLET. PO SCH (14:50)
[2016-08-17] MEDS: ACYCLOVIR 200 MG CAPSULE PO SCH ×2 (14:50→22:14)
[2016-08-17] MEDS: CIPROFLOXACIN HCL 250 MG TABLET PO SCH ×2 (14:54→22:14)
[2016-08-17] MEDS: OXCARBAZEPINE 300 MG TABLET. PO SCH ×2 (14:55→22:14)
[2016-08-17] MEDS: CYCLOBENZAPRINE 10 MG TABLET. PO PRN ×2 (14:55→22:14)
[2016-08-17] MEDS: CYANOCOBALAMIN (VITAMIN B-12) 100 MCG TABLET PO SCH (15:00)
[2016-08-17 15:35] VITALS: BP 111/80
[2016-08-17] MEDS: IPRATRPIUM/ALBUTEROL 0.5/2.5MG 3 ML NEBU. NEB SCH ×2 (15:57→21:20)
[2016-08-17 19:00] VITALS: BP 146/78
[2016-08-17 23:00] VITALS: BP 117/80
[2016-08-18 03:00] VITALS: BP 134/85
[2016-08-18] MEDS: HYDROMORPHONE 2 MG/ML VIAL. IVP PRN (03:58)
[2016-08-18 07:00] VITALS: BP 120/81
[2016-08-18] MEDS: BUDESONIDE 0.5 MG/2 ML NEBU NEB SCH (07:39)
[2016-08-18] MEDS: IPRATRPIUM/ALBUTEROL 0.5/2.5MG 3 ML NEBU. NEB SCH ×2 (07:39→11:42)
[2016-08-18] MEDS: methylPREDNISolone SOD SUCC PF 40 MG/ML VIAL. IV SCH (08:56)
[2016-08-18] MEDS: ACYCLOVIR 200 MG CAPSULE PO SCH (08:57)
[2016-08-18] MEDS: ASPIRIN 325 MG TABLET PO SCH (08:57)
[2016-08-18] MEDS: OXCARBAZEPINE 300 MG TABLET. PO SCH (08:57)
[2016-08-18] MEDS: CIPROFLOXACIN HCL 250 MG TABLET PO SCH (08:57)
[2016-08-18] MEDS: CYANOCOBALAMIN (VITAMIN B-12) 100 MCG TABLET PO SCH (08:57)
[2016-08-18] MEDS: MORPHINE SULFATE 2 MG/ML DISP.SYRIN. IV PRN ×3 (08:58→13:02)
[2016-08-18] MEDS: MONTELUKAST SODIUM 10 MG TABLET. PO SCH (08:58)
[2016-08-18] MEDS: FAMOTIDINE 20 MG TABLET. PO SCH (08:58)
[2016-08-18] MEDS: TOPIRAMATE 25 MG TABLET. PO SCH (08:58)
[2016-08-18] MEDS: NYSTATIN TOPICAL POWDER 15GM BOTTLE. TP SCH (09:00)
[2016-08-18] MEDS: INSULIN ASPART 300 UNITS/3 ML INSULN.PEN SQ SCH ×3 (09:11→11:27)
[2016-08-18] MEDS: INSULIN DETEMIR 300 UNITS/3 ML INSULN.PEN. SQ SCH (09:16)
[2016-08-18] MEDS: LORAZEPAM 2 MG/ML VIAL IV PRN (09:36)
[2016-08-18 10:37] VITALS: BP 127/78
[2016-08-18] MEDS: CYCLOBENZAPRINE 10 MG TABLET. PO PRN (11:20)
[2016-08-18] MEDS ORDERED: HEPARIN PF 500 UNIT/5 ML DISP.SYRIN. IV ONE (12:30)
[2016-08-18] MEDS: ALBUTEROL SULFATE 2.5 MG/3 ML NEBU. NEB PRN (13:44)
--- NOTE | 2016-08-18 15:35 | PDOC3 ---
Discharge Summary Visit Information Date of Admission: Aug 16, 2016 Date of Discharge: Aug 18, 2016 Admitting Diagnosis: abd pain, nausea Final Diagnosis 1. mild hypoxemic resipratory failure, sec to obesity hyperventilation syndrome 2,. CARMEN non complaint with CPAP 3. Morbid Obesity, BMI 40 4,. Buttock abscess s/p I and D in ER 5,. DM 2 on insulin with documented non compliance, 6. Fibromyalgia, sarcoid, RA 7. Acute kidney injury. 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 possible narcotic abuse, repeatedly asked for IV meds despite eating, and claimed due to nausea 9. Chronic fungal infection. 10 History of multiple DVTs, PE. on AC Problems Medical Problems: (1) Abscess, gluteal, right Status: Acute (2) COPD (chronic obstructive pulmonary disease) Status: Acute (3) COPD exacerbation Status: Acute (4) Gluteal abscess Status: Acute (5) Hyperglycemia Status: Acute (6) Uncontrolled diabetes mellitus Status: Acute Brief Hospital Course Allergies Allergies Coded Allergies Type Severity Reaction Last Updated Verified Penicillins Allergy Intermediate 01/25/14 Yes bupropion Allergy Intermediate 01/25/14 Yes ketamine Allergy Intermediate "i flipped out" 07/13/16 Yes ketorolac Allergy Intermediate 01/25/14 Yes ondansetron Allergy Intermediate ITCHING ALL OVER 05/14/15 Yes prochlorperazine Allergy Intermediate 07/31/14 Yes sulfamethoxazole Allergy Intermediate 01/18/14 Yes tiotropium Allergy Intermediate DUONEB OK 06/21/14 Yes tramadol Allergy Intermediate TOLERATES HYDROMORPHONE 06/16/14 Yes trimethoprim Allergy Intermediate 01/18/14 Yes Vital Signs Vital Signs Date Time Temp Pulse Resp B/P Pulse Ox O2 Delivery O2 Flow Rate FiO2 08/18/16 13:46 95 Room Air 08/18/16 13:02 2.0 08/18/16 10:37 97.7 113 20 127/78 97.7 Lab Results Laboratory Tests Test 08/16/16 15:45 08/16/16 19:57 08/17/16 07:10 08/17/16 07:45 O2 Saturation 88% (92-99) Arterial Blood pH 7.33 (7.35-7.45) Arterial Blood pCO2 at Patient Temp 44mmHg (35-46) Arterial Blood pO2 at Patient Temp 55mmHg (75-108) Arterial Blood HCO3 23mmol/L (21-28) Arterial Blood Base Excess -3mmol/L (-3-3) FiO2 21 Glucose (Fingerstick) 306mg/dL (70-99) 290mg/dL (70-99) Nasal Screen MRSA (PCR) Positive (Negative) Test 08/17/16 10:40 08/17/16 16:44 08/17/16 21:20 08/18/16 08:07 Glucose (Fingerstick) 278mg/dL (70-99) 98mg/dL (70-99) 245mg/dL (70-99) 201mg/dL (70-99) Test 08/18/16 11:21 Glucose (Fingerstick) 276mg/dL (70-99) Laboratory Tests Test 08/17/16 16:44 08/17/16 21:20 08/18/16 08:07 08/18/16 11:21 Glucose (Fingerstick) 98mg/dL (70-99) 245mg/dL (70-99) 201mg/dL (70-99) 276mg/dL (70-99) Brief Hospital Course Ms. Baron is a 41 old admit for dyspnea, nausea, hip pain buttock abcess was lanced in the ER she complained of dyspnea, pain and nausea. but ate well, claimed to have vomited when no evidence of such could be found, the trash can she claimed to vomited in had no such thing ate 100% breakfast and lunch on 08/18 DC home Discharge Information Condition at Discharge: Improved Follow Up: Weeks Disposition/Orders: D/C to Home Scheduled Acyclovir (Acyclovir) 200 MG PO BID (Reported) Albuterol Sulfate (Albuterol Sulfate Neb Soln) 1 VIAL NEB PRN Q4HRS Aspirin (Aspirin) 1 TAB PO DAILY (Reported) Cetirizine Hcl (Zyrtec) 10 MG PO DAILY Ciprofloxacin Hcl (Ciprofloxacin Hcl) 250 MG PO BID Cyanocobalamin (Vitamin B-12) (B-12) 100 MCG PO DAILY (Reported) Famotidine (Pepcid) 20 MG PO BID (Reported) Fentanyl (FENTANYL 100mcg/hr) 1 PATCH TP Q3DAYS Fluticasone/Salmeterol (Advair 250-50 Diskus) 1 PUFF INH BID Gabapentin (Neurontin) 300 MG PO TID (Reported) Insulin Aspart (Novolog) 12 UNIT SQ TIDWMEALS (Reported) Montelukast Sodium (Singulair Tablet) 10 MG PO DAILY (Reported) Nph, Human Insulin Isophane (Humulin N) 40 UNIT SQ BID (Reported) Nystatin (Nystatin) 15 GM TP BID (Reported) Oxcarbazepine (Trileptal) 300 MG PO BID (Reported) Prednisone (Prednisone) 10 MG PO DAILY Prednisone (Prednisone) 1 TAB PO DAILY Promethazine Hcl (Promethazine Hcl) 1 TAB PO PRN Q6HRS Rivaroxaban (Xarelto) 1 TAB PO DAILY (Reported) Topiramate (Topamax) 200 MG PO BID (Reported) Scheduled PRN Albuterol Sulfate (Ventolin Hfa Inhaler) 18 GM IH PRN Q4HRS PRN PRN SHORTNESS OF BREATH (Reported) Cyclobenzaprine Hcl (Cyclobenzaprine Hcl) 1 TAB PO PRN TID PRN PRN MUSCLE SPASMS (Reported) Hydromorphone Hcl (Dilaudid) 4 MG PO PRN Q6HRS PRN PRN PAIN (Reported) Loperamide Hcl/Simethicone (Imodium Multi-Symptom Rel Cplt) 1 EACH PO PRN DAILY PRN PRN DIARRHEA (Reported) Lorazepam (Ativan) 0.5 MG PO Q12HR PRN PRN ANXIETY / AGITATION (Reported) Promethazine HCl (Phenergan) 12.5 MG RC PRN Q6-8HRS PRN PRN NAUSEA Promethazine Hcl (Promethazine Hcl) 1 TAB PO Q6-8HRS PRN PRN NAUSEA Promethazine Hcl (Promethazine Hcl) 1 TAB PO Q6-8HRS PRN PRN NAUSEA Promethazine Hcl (Promethazine Hcl) 25 MG RC Q6H PRN PRN NAUSEA/VOMITING Zolpidem Tartrate (Ambien) 10 MG PO PRN DAILY PRN PRN INSOMNIA (Reported) Patient Instructions Patient Instructions f/u at [facility] for chronic hip pain MRSA carrier time > 35 min MARICRUZ PENA MD Aug 18, 2016 15:35
== END 2016-08-18 14:00 | disposition home or self-care (01) | DRG 682 ==
LOC: ER 13:20 → 5 NORTH 17:38
PROVIDERS: ADMIT Internal Medicine; ATTEND Internal Medicine
PROC: 0H98XZZ Drainage of Buttock Skin, External Approach (ICD-10-PCS; principal; 2016-08-16)
DX: N17.0 Acute kidney failure with tubular necrosis (principal); J96.01 Acute respiratory failure with hypoxia; L02.31 Cutaneous abscess of buttock; F11.20 Opioid dependence, uncomplicated; E27.40 Unspecified adrenocortical insufficiency; Z68.41 Body mass index [BMI] 40.0-44.9, adult; J44.1 Chronic obstructive pulmonary disease with (acute) exacerbation; N39.0 Urinary tract infection, site not specified; B49 Unspecified mycosis; F32.9 Major depressive disorder, single episode, unspecified; F41.9 Anxiety disorder, unspecified; E11.22 Type 2 diabetes mellitus with diabetic chronic kidney disease; E11.65 Type 2 diabetes mellitus with hyperglycemia; E66.01 Morbid (severe) obesity due to excess calories; E87.6 Hypokalemia; G47.33 Obstructive sleep apnea (adult) (pediatric); G89.29 Other chronic pain; I12.9 Hypertensive chronic kidney disease with stage 1 through stage 4 chronic kidney disease, or unspecified chronic kidney disease; J45.909 Unspecified asthma, uncomplicated; M06.9 Rheumatoid arthritis, unspecified; M79.7 Fibromyalgia; N18.2 Chronic kidney disease, stage 2 (mild); E11.42 Type 2 diabetes mellitus with diabetic polyneuropathy; Z86.718 Personal history of other venous thrombosis and embolism; Z91.19 Patient's noncompliance with other medical treatment and regimen; Z88.0 Allergy status to penicillin; Z88.8 Allergy status to other drugs, medicaments and biological substances; Z79.4 Long term (current) use of insulin; E66.9 Obesity, unspecified
CPT/HCPCS: 10060; 36415; 36600; 71010; 80048; 80076; 81001; 82550; 82553; 82805; 82947; 83036; 83690; 83735; 83880; 84443; 84484; 84703; 85007; 85027; 85379; 85610; 87071; 87075; 87205; 87641; 93005; 94250; 94640; 94760; 96361; 96374; 96375; 96376; G0481; J1170; J1815; J2060; J2270; J2550; J2920; J2930; J7030; J7620; Q0169; 99285-25

== ENCOUNTER 2016-10-18 21:54 | Emergency (ER) | payer OTHER ==
[~2016-10-18] VITALS: Ht 162.6 cm; Wt 108.9 kg
[~2016-10-18 21:54] MED LIST changes: +ATOR40TA59 PO; +HYDR-2678 PO; +HYDR10TA14 PO; +HYDR20TA3 PO; +SPIR25TA3 PO; +[UNRECOGNIZED DRUG - CODE] PO
--- NOTE | 2016-10-18 22:15 | PHYS DOC ---
Past Medical History Past Medical History: Anxiety, Asthma, Depression, Diabetes-Type II, Fibromyalgia, Hypertension, MRSA, Ovarian Cyst, Seizure, Other Additional Past Medical Histor: NEUROPATHY VAS. NECROSIS,TACHY,DVT, PE,SLIPPED DISC IN BACK,sarcodosis Past Surgical History: Cholecystectomy, Other Additional Past Surgical Histo: OVARIN CYSTS RUPTURE W/ D&C, PINCHED NERVE IN BACK,PILONIDAL CYST Alcohol Use: None Drug Use: None Adult General Chief Complaint Chief Complaint: SHORTNESS OF BREATH HPI HPI Patient is a 41 year old female who presents with shortness of breath. She also reports low back pain after falling and hitting her back on the trunk to the foot of her bed earlier today. She also reports sore throat. Patient has used her inhaler and nebulizer treatments for shortness of breath with insufficient relief. No chest discomfort. Pain is in her lower back; no lower extremity numbness or weakness, no loss of bowel or bladder continence. Sore throat also began today. No fever. Review of Systems Review of Systems Constitutional: Denies fever or chills Eyes: Denies change in visual acuity or eye pain HENT: Sore throat. Denies nasal congestion Respiratory: SOB, wheezing Cardiovascular: Denies chest pain GI: Denies abdominal pain, nausea, vomiting, bloody stools or diarrhea : Denies dysuria or hematuria Musculoskeletal: Low back pain Integument: Denies rash or skin lesions Neurologic: Denies headache, focal weakness or sensory changes Current Medications Current Medications Current Medications Medications (Trade) Dose Ordered Sig/Jerilyn Start Time Stop Time Status Last Admin Dose Admin Diazepam 5 mg 5 mg 1X ONCE 10/19/16 00:30 10/19/16 00:31 Diphenhydramine HCl (Benadryl) 50 mg 1X ONCE 10/19/16 00:30 10/19/16 00:31 Fentanyl Citrate (Fentanyl 2ml Vial) 50 mcg PRN Q30MIN PRN 10/19/16 00:15 Naproxen (Naprosyn) 250 mg 1X ONCE 10/19/16 00:30 10/19/16 00:31 Oxycodone HCl 10 mg 1X ONCE 10/18/16 23:00 10/18/16 23:01 DC 10/18/16 23:05 10 MG Sodium Chloride (Iv Sodium Chloride 0.9% 500ml Bag) 500 ml @ 500 mls/hr 1X ONCE 10/19/16 00:30 10/19/16 01:29 Allergies Allergies Allergies Coded Allergies Type Severity Reaction Last Updated Verified Penicillins Allergy Intermediate 01/25/14 Yes bupropion Allergy Intermediate 01/25/14 Yes ketamine Allergy Intermediate "i flipped out" 07/13/16 Yes ketorolac Allergy Intermediate 01/25/14 Yes ondansetron Allergy Intermediate ITCHING ALL OVER 05/14/15 Yes prochlorperazine Allergy Intermediate 07/31/14 Yes sulfamethoxazole Allergy Intermediate 01/18/14 Yes tiotropium Allergy Intermediate DUONEB OK 06/21/14 Yes tramadol Allergy Intermediate TOLERATES HYDROMORPHONE 06/16/14 Yes trimethoprim Allergy Intermediate 01/18/14 Yes I S O L A T I O N *CONTACT* Allergy Unknown 08/20/16 Yes Physical Exam Physical Exam Constitutional: Well developed, well nourished, no acute distress, non-toxic appearance HENT: Normocephalic, atraumatic, bilateral external ears normal; oropharynx without erythema or exudate Eyes: EOMI, conjunctiva normal, no discharge Neck: Normal range of motion, no stridor Cardiovascular: Tachycardic, regular rhythm, no murmur Lungs & Thorax: Diffuse mild end expiratory wheezing Abdomen: Bowel sounds normal, soft, non-distended, no TTP Skin: Warm, dry, no erythema, no rash Back: General lumbar tenderness to palpation; no skin lesion, deformity, stepoff noted Extremities: No obvious deformity, no edema Neurologic: Alert and oriented X 3, BLE strength and sensation to light touch fully intact, no gross deficits noted Current Patient Data Vital Signs Vital Signs Date Time Temp Pulse Resp B/P Pulse Ox O2 Delivery O2 Flow Rate FiO2 10/18/16 23:05 16 Room Air 10/18/16 22:00 98.9 116 127/76 100 98.9 Lab Values Laboratory Tests Test 10/18/16 21:41 10/18/16 23:17 POC Urine HCG, Qualitative Hcg negative (Negative) White Blood Count 8.1x10^3/uL (4.0-11.0) Red Blood Count 4.78x10^6/uL (3.50-5.40) Hemoglobin 10.5g/dL (12.0-15.5) L Hematocrit 35.4% (36.0-47.0) L Mean Corpuscular Volume 74fL (79-100) L Mean Corpuscular Hemoglobin 22pg (25-35) L Mean Corpuscular Hemoglobin Concent 30g/dL (31-37) L Red Cell Distribution Width 19.9% (11.5-14.5) H Platelet Count 128x10^3/uL (140-400) L Neutrophils (%) (Auto) 64% (31-73) Lymphocytes (%) (Auto) 23% (24-48) L Monocytes (%) (Auto) 12% (0-9) H Eosinophils (%) (Auto) 1% (0-3) Basophils (%) (Auto) 1% (0-3) Neutrophils # (Auto) 5.2x10^3uL (1.8-7.7) Lymphocytes # (Auto) 1.8x10^3/uL (1.0-4.8) Monocytes # (Auto) 0.9x10^3/uL (0.0-1.1) Eosinophils # (Auto) 0.1x10^3/uL (0.0-0.7) Basophils # (Auto) 0.1x10^3/uL (0.0-0.2) Sodium Level 142mmol/L (136-145) Potassium Level 3.2mmol/L (3.5-5.1) L Chloride Level 104mmol/L (98-107) Carbon Dioxide Level 25mmol/L (21-32) Anion Gap 13 (6-14) Blood Urea Nitrogen 7mg/dL (7-20) Creatinine 0.9mg/dL (0.6-1.0) Estimated GFR (Cockcroft-Gault) 83.5 Glucose Level 243mg/dL (70-99) H Calcium Level 9.1mg/dL (8.5-10.1) Laboratory Tests 10/18/16 23:17 Laboratory Tests 10/18/16 23:17 EKG EKG EKG (my read): sinus tachycardia, rate 116, no acute ST/T changes Radiology/Procedures Radiology/Procedures CXR (my read): No significant change from prior X-ray lumbar spine (my read): No significant change from lumbar CT 08/31/16 Course & Med Decision Making Course & Med Decision Making Pertinent Labs and Imaging studies reviewed. (See chart for details) Patient is 41-year-old female who presents with apparent COPD exacerbation, low back pain, sore throat. Will obtain chest x-ray, x-rays of lumbar spine, EKG, labs to evaluate. Rapid strep negative. Will not give breathing treatment at this time, as patient has minimal wheezing is satting 100% on room air. Patient already taking steroids, will not give any in ED. Oxycodone ordered for pain control. X-ray and EKG results as above. Initial labs unremarkable. Patient remains tachycardic; although I very low suspicion for ACS, we will obtain troponin as well as BNP. I will also obtain CTA chest to rule out PE, although patient is taking xarelto. At this time will turn patient care over to Dr. Whitaker as labs and CTA still pending. Sol Disclaimer Dragon Disclaimer This electronic medical record was generated, in whole or in part, using a voice recognition dictation system. Departure Departure Referrals: ENDY ARGUETA (PCP) JAYJAY RINALDI MD Oct 18, 2016 22:15
[2016-10-18] MEDS ORDERED: OXYCODONE 5 MG/5 ML ORAL SOLUTION. PO ONE (23:00)
[2016-10-18 23:26] LABS: BASO # 0.1 x10^3/uL (0.0-0.2); BASO % 1 % (0-3); EOS % 1 % (0-3); HEMATOCRIT 35.4 % (36.0-47.0); HEMOGLOBIN 10.5 g/dL (12.0-15.5); LYMPH # 1.8 x10^3/uL (1.0-4.8); LYMPH % 23 % (24-48); MEAN CORPUSCULAR HEMOGLOBIN 22 pg (25-35); MEAN CORPUSCULAR HGB CONC 30 g/dL (31-37); MEAN CORPUSCULAR VOLUME 74 fL (79-100); MONO % 12 % (0-9); NEUT % 64 % (31-73); PLATELET COUNT 128 x10^3/uL (140-400); RED BLOOD COUNT 4.78 x10^6/uL (3.50-5.40); RED CELL DISTRIBUTION WIDTH 19.9 % (11.5-14.5); WHITE BLOOD COUNT 8.1 x10^3/uL (4.0-11.0)
[2016-10-18 23:37] LABS: CALCIUM 9.1 mg/dL (8.5-10.1); CREATININE 0.9 mg/dL (0.6-1.0)
[2016-10-18 23:38] LABS: GFR 83.5; POTASSIUM 3.2 mmol/L (3.5-5.1)
[2016-10-19] MEDS ORDERED: FENTANYL PF 100 MCG/2 ML VIAL. IV PRN (00:15)
[2016-10-19] MEDS ORDERED: DIAZEPAM 10 MG/2 ML DISP.SYRIN. IV ONE (00:30)
[2016-10-19] MEDS ORDERED: IV NORMAL SALINE 500ML BAG 500 ML IV ONE (00:30)
[2016-10-19] MEDS ORDERED: DIPHENHYDRAMINE 50 MG/ML VIAL IVP ONE (00:30)
[2016-10-19] MEDS ORDERED: POTASSIUM CHLORIDE 20 MEQ TABLET.ER. PO ONE (00:30)
[2016-10-19] MEDS ORDERED: NAPROXEN 250 MG TABLET PO ONE (00:30)
[2016-10-19] MEDS ORDERED: CONTRAST GIVEN MC PRN (01:15)
[2016-10-19] MEDS ORDERED: IOHEXOL 300 MG/ML 75 ML VIAL IV ONE (01:30)
[2016-10-19] MEDS ORDERED: DIPHENHYDRAMINE HCL 25 MG CAPSULE PO ONE ×2 (01:32→02:00)
--- NOTE | 2016-10-19 01:34 | RAD ---
CTA chest with contrast Indication: Shortness of breath and tachycardia. Axial imaging through the chest was performed after the administration of intravenous contrast. PQRS STATEMENT One or more of the following individualized dose reduction techniques were utilized for this study: 1.Automated exposure control. 2.Adjustment of the mA and/orkVaccording to patient size. 3.Use of iterative reconstruction technique. Comparison is made with prior CT from 05/21/2016. Evaluation of the pulmonary arterial system is without evidence of thromboembolism. The thoracic aorta is without evidence of thromboembolism. No pericardial or pleural fluid is identified. Parenchymal evaluation does again show mosaic attenuation, similar to prior exam. Cystic changes in the right upper lobe appears stable. Central cylindrical bronchiectasis is unchanged. Mild interstitial changes bilaterally. No parenchymal mass is detected. No axillary, hilar or mediastinal lymphadenopathy is seen. Upper abdomen is unremarkable. Impression: Stable CT of the chest when compared with exam from 05/21/2016. No pulmonary embolism is identified Electronically signed by: Steve Boogie MD (Oct 19, 2016 01:33:21)
[2016-10-19] MEDS ORDERED: PROAIR HFA8.5 GM INH (03:13)
[2016-10-19 03:30] VITALS: BP 118/66
--- NOTE | 2016-10-19 06:34 | EKG ---
[facility] [address] [place] [address] Test Date: 2016-10-18 Test Time: 22:07:13 Pat Name: CASSIE JO Department: Room: Gender: F [employer]: : 1975 Requested By: JAYJAY RINALDI Order Number: [id number] Reading MD: Lucy Saxena Measurements Intervals [place] Rate: 116 P: 32 RI: 144 QRS: 64 QRSD: 74 T: 59 QT: 304 QTc: 422 Interpretive Statements SINUS TACHYCARDIA OTHERWISE NORMAL ECG RI6.01 Unconfirmed report Compared to ECG 08/30/2016 02:07:38 No significant changes Electronically Signed On 10-20-2016 20:11:21 CDT by Lucy Saxena
[2016-10-19 07:22] LABS: NEGATIVE OBC STREP NEG; POSITIVE OBC STREP POS
--- NOTE | 2016-10-19 07:50 | RAD ---
Lumbar spine, 3 views, 10/18/2016: History: Fall back and chest pain There is a mild left convexity lumbar scoliosis. The lumbar vertebral heights are well-maintained. No fracture or dislocation is evident. There is very minimal marginal spurring. There are surgical clips in the right upper quadrant. IMPRESSION: 1. Mild lumbar scoliosis. 2. No acute abnormality is detected.
--- NOTE | 2016-10-19 07:53 | RAD ---
Chest, 2 views, 10/18/2016: History: Fall, back pain Comparison is made to a study from 08/30/2016. A right PICC has been inserted extending into the mid to inferior aspect of the right atrium. The heart size and pulmonary vascularity are normal. There are surgical sutures in the right upper chest. There are unchanged bilateral linear parenchymal opacities compatible with scarring. No acute infiltrate is seen. There is no evidence of pleural fluid. IMPRESSION: 1. A right PICC extends into the right atrium. 2. Moderate bilateral parenchymal scarring. 3. No acute cardiopulmonary abnormality is detected.
== END 2016-10-19 03:33 | disposition home or self-care (01) ==
LOC: ER 21:54
DX: R06.02 Shortness of breath (principal); M54.5 Low back pain; J02.9 Acute pharyngitis, unspecified; R00.0 Tachycardia, unspecified; J44.9 Chronic obstructive pulmonary disease, unspecified; E11.40 Type 2 diabetes mellitus with diabetic neuropathy, unspecified; F32.9 Major depressive disorder, single episode, unspecified; M79.7 Fibromyalgia; I10 Essential (primary) hypertension; F41.9 Anxiety disorder, unspecified; Z88.0 Allergy status to penicillin; Z86.718 Personal history of other venous thrombosis and embolism; Z86.14 Personal history of Methicillin resistant Staphylococcus aureus infection; Z90.49 Acquired absence of other specified parts of digestive tract; Z88.8 Allergy status to other drugs, medicaments and biological substances; Z91.041 Radiographic dye allergy status; Z88.2 Allergy status to sulfonamides
CPT/HCPCS: 36415; 71020; 71275; 72100; 80048; 81025; 83880; 84484; 85027; 87070; 87880; 93005; 96361; 96374; 96375; 99285; J1200; J3010; J3360; J7040; Q0163; Q9967

== ENCOUNTER 2016-11-09 16:13 | Emergency (ER) | payer OTHER ==
[~2016-11-09 16:13] MED LIST changes: +PROAIR HFA8.5 GM INH
[2016-11-09] MEDS ORDERED: IV NORMAL SALINE 500ML BAG 500 ML IV ONE (16:45)
--- NOTE | 2016-11-09 16:49 | PHYS DOC ---
Past Medical History Past Medical History: Anxiety, Asthma, Depression, Diabetes-Type II, Fibromyalgia, Hypertension, MRSA, Ovarian Cyst, Seizure, Other Additional Past Medical Histor: NEUROPATHY VAS. NECROSIS,TACHY,DVT, PE,SLIPPED DISC IN BACK,sarcodosis Past Surgical History: Cholecystectomy, Other Additional Past Surgical Histo: OVARIN CYSTS RUPTURE W/ D&C, PINCHED NERVE IN BACK,PILONIDAL CYST, Alcohol Use: None Drug Use: None Adult General Chief Complaint Chief Complaint: ABDOMINAL PAIN HPI HPI 41-year-old female who primarily gets her care at the [facility] who presents today with abdominal pain. She has a history of sarcoidosis pulmonary embolism recently treated for Clostridium difficile after recovering from MRSA bacteremia and receiving IV antibiotics. She presents today with generalized abdominal pain that has started approximately 24 hours ago. She also reports generalized myalgias. The abdominal pain is sharp generalized nonradiating and without alleviating factors. Review of systems is negative for chest pain fevers chills. She has had watery stools and is currently on oral antibiotics for Clostridium difficile. She complains of shortness of breath however is breathing comfortably in the room. All other review of systems is negative unless otherwise noted in history of present illness. Review of Systems Review of Systems SEE ABOVE. Current Medications Current Medications Current Medications Medications (Trade) Dose Ordered Sig/Jerilyn Start Time Stop Time Status Last Admin Dose Admin Morphine Sulfate 2 mg PRN Q1HR PRN 11/09/16 16:45 11/09/16 18:36 2 MG Sodium Chloride (Iv Sodium Chloride 0.9% 500ml Bag) 500 ml @ 500 mls/hr 1X ONCE 11/09/16 16:45 11/09/16 17:44 DC 11/09/16 16:45 500 MLS/HR Allergies Allergies Allergies Coded Allergies Type Severity Reaction Last Updated Verified Penicillins Allergy Intermediate 01/25/14 Yes bupropion Allergy Intermediate 01/25/14 Yes ketamine Allergy Intermediate "i flipped out" 07/13/16 Yes ketorolac Allergy Intermediate 01/25/14 Yes ondansetron Allergy Intermediate ITCHING ALL OVER 05/14/15 Yes prochlorperazine Allergy Intermediate 07/31/14 Yes sulfamethoxazole Allergy Intermediate 01/18/14 Yes tiotropium Allergy Intermediate DUONEB OK 06/21/14 Yes tramadol Allergy Intermediate TOLERATES HYDROMORPHONE 06/16/14 Yes trimethoprim Allergy Intermediate 01/18/14 Yes metoclopramide Allergy Mild Hives 11/09/16 Yes I S O L A T I O N *CONTACT* Allergy Unknown 08/20/16 Yes Physical Exam Physical Exam Constitutional: Well developed, well nourished, no acute distress, non-toxic appearance. HENT: Normocephalic, atraumatic, bilateral external ears normal, oropharynx moist, no oral exudates, nose normal. [] Eyes: PERRLA, EOMI, conjunctiva normal, no discharge. Neck: Normal range of motion, no tenderness, supple, no stridor. [] Cardiovascular:Heart rate regular rhythm, no murmur [] Lungs & Thorax: Bilateral breath sounds clear to auscultation . No wheezing or crackles present. Abdomen: Abdomen is soft and nontender. No rebound tenderness or guarding is present. Negative McBurney's point. Negative Lopez sign. Bowel sounds are hyperactive. Skin: Warm, dry, no erythema, no rash. [] Back: No tenderness, no CVA tenderness. Extremities: No tenderness, no cyanosis, no clubbing, ROM intact, no edema. [] Neurologic: Alert and oriented X 3, normal motor function, normal sensory function, no focal deficits noted. Psychologic: Affect normal, judgement normal, mood normal. [] Current Patient Data Vital Signs Vital Signs Date Time Temp Pulse Resp B/P Pulse Ox O2 Delivery O2 Flow Rate FiO2 11/09/16 18:36 118 18 139/91 99 11/09/16 16:20 99.1 Room Air 99.1 Lab Values Laboratory Tests Test 11/09/16 15:56 11/09/16 16:50 11/09/16 18:08 POC Urine HCG, Qualitative Hcg negative (Negative) Urine Collection Type Unknown Urine Color Yellow Urine Clarity Clear Urine pH 6.0 Urine Specific [place] <=1.005 Urine Protein Negativemg/dL (NEG-TRACE) Urine Glucose (UA) 100mg/dL (NEG) Urine Ketones (Stick) 15mg/dL (NEG) Urine Blood Negative (NEG) Urine Nitrite Negative (NEG) Urine Bilirubin Negative (NEG) Urine Urobilinogen Dipstick 0.2mg/dL (0.2 mg/dL) Urine Leukocyte Esterase Negative (NEG) Urine RBC 0/HPF (0-2) Urine WBC 0/HPF (0-4) Urine Squamous Epithelial Cells Many/LPF Urine Bacteria Moderate/HPF (0-FEW) Influenza Type A Antigen Negative (NEGATIVE) Influenza Type B Antigen Negative (NEGATIVE) White Blood Count 6.9x10^3/uL (4.0-11.0) Red Blood Count 5.83x10^6/uL (3.50-5.40) H Hemoglobin 11.9g/dL (12.0-15.5) L Hematocrit 39.3% (36.0-47.0) Mean Corpuscular Volume 67fL (79-100) L Mean Corpuscular Hemoglobin 20pg (25-35) L Mean Corpuscular Hemoglobin Concent 30g/dL (31-37) L Red Cell Distribution Width 20.6% (11.5-14.5) H Platelet Count 277x10^3/uL (140-400) # Neutrophils (%) (Auto) 51% (31-73) Lymphocytes (%) (Auto) 29% (24-48) Monocytes (%) (Auto) 18% (0-9) H Eosinophils (%) (Auto) 1% (0-3) Basophils (%) (Auto) 1% (0-3) Neutrophils # (Auto) 3.5x10^3uL (1.8-7.7) Lymphocytes # (Auto) 2.0x10^3/uL (1.0-4.8) Monocytes # (Auto) 1.2x10^3/uL (0.0-1.1) H Eosinophils # (Auto) 0.1x10^3/uL (0.0-0.7) Basophils # (Auto) 0.1x10^3/uL (0.0-0.2) Platelet Estimate Adequate (ADEQUATE) Polychromasia Slight Hypochromasia Mod Anisocytosis Mod Microcytosis Marked Sodium Level 138mmol/L (136-145) Potassium Level 3.7mmol/L (3.5-5.1) Chloride Level 101mmol/L (98-107) Carbon Dioxide Level 27mmol/L (21-32) Anion Gap 10 (6-14) Blood Urea Nitrogen 2mg/dL (7-20) L Creatinine 0.7mg/dL (0.6-1.0) Estimated GFR (Cockcroft-Gault) 111.6 BUN/Creatinine Ratio 3 (6-20) L Glucose Level 164mg/dL (70-99) H Calcium Level 9.4mg/dL (8.5-10.1) Total Bilirubin 0.4mg/dL (0.2-1.0) Aspartate Amino Transferase (AST) 21U/L (15-37) Alanine Aminotransferase (ALT) 15U/L (14-59) Alkaline Phosphatase 131U/L (46-116) H Troponin I Quantitative < 0.017ng/mL (0.000-0.055) Total Protein 7.4g/dL (6.4-8.2) Albumin 3.4g/dL (3.4-5.0) Albumin/Globulin Ratio 0.9 (1.0-1.7) L Lipase 335U/L (73-393) Laboratory Tests 11/09/16 18:08 Laboratory Tests 11/09/16 18:08 EKG EKG [] Radiology/Procedures Radiology/Procedures [] Course & Med Decision Making Course & Med Decision Making Pertinent Labs and Imaging studies reviewed. (See chart for details) [] 41-year-old female presenting to the emergency department today with generalized abdominal pain. Initial vital signs showed that she was afebrile with tachycardia at 130. Otherwise unremarkable. Pertinent physical exam findings showed nontender nondistended abdomen. Labs obtained. IV fluids and pain medication administered. Patient feeling better after reexamination. Reexamination the abdomen continued to be nontender. Patient was subsequent discharged home to follow up with primary care physician over the next day or 2. [id number] discharge instructions given. Patient comfortable with plan. Dragon Disclaimer Dragon Disclaimer This electronic medical record was generated, in whole or in part, using a voice recognition dictation system. Departure Departure Impression: Primary Impression: Abdominal pain Disposition: 01 HOME, SELF-CARE Condition: STABLE Referrals: ENDY ARGUETA (PCP) Patient Instructions: Abdominal Pain Additional Instructions: Thank you for allowing us to participate in your care today. Followup with your primary care physician in 3 days if your symptoms do not improve. If you do not have a primary care provider you can ask for a list of our primary care providers. Return to the emergency department you have any new or concerning findings. This should be evaluated by the primary care physician and any necessary consulting services for continued management within a few days after discharge. Return to emergency room if you have any new or concerning symptoms including but not limited to fever, chills, nausea, vomiting, intractable pain, any new rashes, chest pain, shortness of air, uncontrolled bleeding, difficulty breathing, and/or vision loss. Scripts Dicyclomine Hcl (Bentyl)10 Mg Capsule1 Cap PO PRN TID PRN PAIN #10 CAP Ref 1 Prov:LILIANA SULTANA MD 11/09/16 Problem Qualifiers Primary Impression: Abdominal pain Abdominal location: generalized Qualified Code: R10.84 - Generalized abdominal pain LILIANA SULTANA MD Nov 09, 2016 16:49
[2016-11-09 17:02] LABS: BILIRUBIN,URINE NEGATIVE (NEG); GLUCOSE,URINE 100 mg/dL (NEG); NITRITE,URINE NEGATIVE (NEG); PROTEIN,URINE NEGATIVE (NEG-TRACE); UROBILINOGEN,URINE 0.2 mg/dL (0.2 mg/dL)
--- NOTE | 2016-11-09 17:06 | RAD ---
Portable chest, 11/09/2016: History: Sarcoidosis, asthma, chest pain Comparison is made to a study from 10/18/2016. The right PICC has been removed. The heart size is normal. The pulmonary vascularity is normal. There are streaky bilateral parenchymal opacities which are unchanged. This probably represents scarring in this patient with a history of sarcoidosis. No superimposed acute infiltrate is seen. There is no evidence of pleural fluid or pneumothorax. IMPRESSION: No significant change since 10/18/2016.
[2016-11-09 17:10] LABS: BACTERIA,URINE MODERATE /HPF (0-FEW); RBC,URINE 0 /HPF (0-2); SQUAMOUS EPITHELIAL CELL,UR MANY /LPF; WBC,URINE 0 /HPF (0-4)
[2016-11-09 17:11] LABS: OBC FLU VALID
[2016-11-09] MEDS: MORPHINE SULFATE 2 MG/ML DISP.SYRIN. IV PRN ×2 (17:29→18:36)
[2016-11-09 18:14] LABS: BASO # 0.1 x10^3/uL (0.0-0.2); BASO % 1 % (0-3); EOS % 1 % (0-3); HEMATOCRIT 39.3 % (36.0-47.0); HEMOGLOBIN 11.9 g/dL (12.0-15.5); LYMPH % 29 % (24-48); MEAN CORPUSCULAR HEMOGLOBIN 20 pg (25-35); MEAN CORPUSCULAR HGB CONC 30 g/dL (31-37); MEAN CORPUSCULAR VOLUME 67 fL (79-100); MONO % 18 % (0-9); NEUT % 51 % (31-73); PLATELET COUNT 277 x10^3/uL (140-400); RED BLOOD COUNT 5.83 x10^6/uL (3.50-5.40); RED CELL DISTRIBUTION WIDTH 20.6 % (11.5-14.5); WHITE BLOOD COUNT 6.9 x10^3/uL (4.0-11.0)
[2016-11-09 18:25] LABS: CALCIUM 9.4 mg/dL (8.5-10.1); CREATININE 0.7 mg/dL (0.6-1.0); GFR 111.6; POTASSIUM 3.7 mmol/L (3.5-5.1)
[2016-11-09 18:31] LABS: ALBUMIN 3.4 g/dL (3.4-5.0); ALBUMIN/GLOBULIN RATIO 0.9 (1.0-1.7); TOTAL BILIRUBIN 0.4 mg/dL (0.2-1.0); TOTAL PROTEIN 7.4 g/dL (6.4-8.2)
[2016-11-09 18:33] LABS: ANISOCYTOSIS MOD; HYPOCHROMIA MOD; MICROCYTOSIS MARKED; PLT ESTIMATE ADEQUATE (ADEQUATE); POLYCHROMASIA SLIGHT
[2016-11-09] MEDS ORDERED: DICY10CA53 PO (18:50)
[2016-11-09 19:37] VITALS: BP 160/86
--- NOTE | 2016-11-10 10:10 | EKG ---
[facility] [address] [place] [address] Test Date: 2016-11-09 Test Time: 17:03:32 Pat Name: CASSIE JO Department: Room: Gender: F Unit Aide: : 1975 Requested By: LILIANA SULTANA Order Number: [id number] Reading MD: Measurements Intervals [place] Rate: 119 P: 60 FL: 156 QRS: 65 QRSD: 74 T: 56 QT: 320 QTc: 451 Interpretive Statements SINUS TACHYCARDIA NO SPECIFIC ECG ABNORMALITIES RI6.01 No previous ECG available for comparison
== END 2016-11-09 19:39 | disposition home or self-care (01) ==
LOC: ER 16:13
DX: R10.84 Generalized abdominal pain (principal); R00.0 Tachycardia, unspecified; F41.9 Anxiety disorder, unspecified; J45.909 Unspecified asthma, uncomplicated; F32.9 Major depressive disorder, single episode, unspecified; M79.7 Fibromyalgia; I10 Essential (primary) hypertension; E11.42 Type 2 diabetes mellitus with diabetic polyneuropathy; Z86.718 Personal history of other venous thrombosis and embolism; Z90.49 Acquired absence of other specified parts of digestive tract; Z86.14 Personal history of Methicillin resistant Staphylococcus aureus infection; Z86.711 Personal history of pulmonary embolism; Z91.041 Radiographic dye allergy status; Z88.1 Allergy status to other antibiotic agents; Z88.6 Allergy status to analgesic agent; Z88.8 Allergy status to other drugs, medicaments and biological substances; Z88.2 Allergy status to sulfonamides; Z88.5 Allergy status to narcotic agent; Z88.0 Allergy status to penicillin
CPT/HCPCS: 36415; 71010; 80053; 81001; 81025; 83690; 84484; 85007; 85027; 87086; 87804; 93005; 96361; 96374; 96376; 99285; J2270; J7040